=== PATIENT | female | born 1975 | race African-American/Black ===

== ENCOUNTER 2021-06-28 20:20 | Observation (INO) | payer MEDICARE, SELFPAY ==
--- NOTE | ~2021-06-28 | CT_ITS ---
EXAMINATION: CT brain wo con DATE: 06/28/2021 21:31 INDICATION: Headache. TECHNIQUE: Computed tomography (CT) of the head was performed without intravenous contrast. The mA wa s adjusted according to patient size. Iterative reconstruction technique was employed. The dose-lengt h product was 605.33 mGy-cm. COMPARISON: Head CT 05/28/2016, brain MRI 07/16/2007 FINDINGS: There is no intracranial hemorrhage, acute infarction, or abnormal intracranial mass lesion . The ventricles are normal in size. The paranasal sinuses are clear. The mastoid air cells are monroe l. IMPRESSION: 1. Normal brain. Reviewed, dictated and finalized at location A. IMPRESSION: 1. Normal brain.
--- NOTE | ~2021-06-28 | US_ITS ---
EXAMINATION: US pelvic complete DATE: 06/29/2021 15:30 INDICATION: Abnormal uterine bleeding. TECHNIQUE: Multiple transabdominal sonographic images of the pelvis were obtained. COMPARISON: CT abdomen and pelvis 08/20/2018 FINDINGS: The uterus measures 13.5 x 7.1 x 6.6 cm. There is no free fluid in the pelvis. The endometrial comple x measures 9 mm in thickness. There is a submucosal fibroid measuring 6.7 cm. The right ovary measure s 2.2 x 1.7 x 1.1 cm. The left ovary measures 3.1 x 2.7 x 4.1 cm. There is normal vascular flow in th e ovaries. IMPRESSION: 1. Uterine fibroid. Reviewed, dictated and finalized at location A. IMPRESSION: 1. Uterine fibroid.
[2021-06-28 20:32] VITALS: BP 168/103; PULSE 79; RESP 21; TEMP 36.4; O2SAT 100
--- NOTE | 2021-06-28 21:21 | ED.HA ---
HPI - Headache General Chief Complaint: Headache Stated Complaint: headache Time Seen by Provider: 06/28/21 20:58 History of Present Illness HPI Narrative: Patient presents with headache. Reports intermittent headache for the past several months reports over the past couple days has been getting progressively worse patient. Reports her headache is moving from one side of her head to the other is a throbbing sensation constant worse with bright lights or loud noises. Sure she can't tolerate anymore so she came in for evaluation. She reports intermittent blurry vision associated with a headache she denies any other areas of focal numbness or weakness. She does report diffuse fatigue and weakness. she denies any recent spinal instrumentation she denies any history of IV drug use she denies any fevers she denies neck pain. Related Data Home Medications Medication Instructions Recorded Confirmed bupropion HCl mg PO 06/28/21 06/28/21 diltiazem HCl PO 06/28/21 ergocalciferol (vitamin D2) 06/28/21 [Vitamin D2] lisinopril-hydrochlorothiazide tablet 06/28/21 lorazepam 06/28/21 pantoprazole [Protonix] PO 06/28/21 quetiapine mg PO 06/28/21 sertraline mg 06/28/21 Allergies Allergy/AdvReac Type Severity Reaction Status Date / Time Penicillins Allergy Severe Rash Verified 06/28/21 20:39 Review of Systems Review of Systems: CONSTITUTIONAL: Denies fever, chills, or sweats. EYES: Denies visual changes, redness, or discharge. ENT: Denies rhinorrhea, congestion, sore throat, or otalgia. CARDIOVASCULAR: Denies chest pain, palpitations, or edema. RESPIRATORY: Denies cough or dyspnea. GASTROINTESTINAL: Denies abdominal pain, nausea, vomiting, or diarrhea. GENITOURINARY: Denies dysuria or hematuria. SKIN: Denies rash or itching. MUSCULOSKELETAL: Denies back pain, joint pain, or myalgia. NEUROLOGIC: Denies numbness, dizziness, or weakness. PSYCHIATRIC: Denies anxiety or depression. All systems reviewed & are unremarkable except as noted in HPI and below Exam Narrative: GENERAL: Well-appearing, well-nourished, and in no acute distress. HEAD: Normocephalic, atraumatic. EYES: PERRLA and EOMI. ENT: Nares clear, no rhinorrhea or epistaxis. Mucous membranes moist. NECK: Supple. No masses. No JVD EXTREMITIES: Normal range of motion. No edema. SKIN: Warm, dry, no rash. NEURO: Cranial nerves II through XII are intact patient has 5 out of 5 strength in all extremities sensation intact to light touch in all extremities alert and oriented x3. PSYCH: Normal mood and affect. Course Reevaluation(s) Reevaluation #1: Labs reviewed with patient, She reports a hx of heaving bleeding and has had heavy menses, over the past year and is actively bleeding. SHe reports a hx of the same required blood transfusion. Requesting admisison for transfution. Date: 06/28/21 Time: 22:34 Vital Signs Vital signs: Vital Signs Temperature 36.4 C 06/28/21 20:32 Pulse Rate 79 06/28/21 20:32 Respiratory Rate 21 H 06/28/21 20:32 Blood Pressure 168/103 H 06/28/21 20:32 Pulse Oximetry 100 06/28/21 20:32 Temperature 36.1 C L 06/29/21 01:02 Pulse Rate 66 06/29/21 01:02 Respiratory Rate 20 06/29/21 01:02 Blood Pressure 149/83 H 06/29/21 01:02 Pulse Oximetry 100 06/29/21 01:02 MDM - Headache MDM Narrative Medical decision making narrative: Patient presented with headache and generalized fatigue. Patient's exam was reassuring without focal neurological deficits. Labs and imaging obtained. Labs notable for anemia. Patient reported a history of the same due to uterine fibroids and heavy menses. It was recommended patient have a hysterectomy previously but patient has not pursued additional therapies. Patient is admitted for transfusion and GI evaluation. Patient comfortable with the inpatient plan. Lab Data Result diagrams: 06/28/21 21:45 06/28/21 21:45 Labs: Lab Results 06/28/21 06/28/21 Range
[2021-06-28 21:47] VITALS: BP 148/86; PULSE 88; RESP 20
[2021-06-28 21:57] LABS: Basophils Absolute Auto 0.1 K/mm3 (0.0-0.1); Basophils Percent Auto 0.9 % (0.2-1.2); Eosinophils Absolute Auto 0.2 K/mm3 (0-0.3); Hematocrit 23.7 % (37.0-47.0); Immature Granulocyte Absolute 0.03 K/mm3 (0.00-0.031); Immature Granulocyte Percent A 0.4 % (0-0.5); Lymphocytes Absolute Auto 1.93 K/mm3 (0.9-3.2); Lymphocytes Percent Auto 24.3 % (18.3-44.2); Mean Corpuscular HGB Conc 27.8 g/dl (32-36); Mean Corpuscular Hemoglobin 16.8 pg (26-34); Mean Corpuscular Volume 60.5 fl (80-100); Mean Platelet Volume 8.2 fl (7.4-10.4); Monocytes Absolute Auto 0.5 K/mm3 (0.1-0.6); Monocytes Percent Auto 6.3 % (2.6-8.5); Neutrophils Absolute Auto 5.3 K/mm3 (1.3-6.7); Neutrophils Percent Auto 66.1 % (45.5-73.1); Platelet Count Result 613 k/mm3 (150-375); Red Blood Count 3.92 M/mm3 (4.2-5.4); Red Cell Distribution Width 23.5 % (11.5-14.5); White Blood Count 7.9 K/mm3 (4.5-10.0)
[2021-06-28 22:07] LABS: Anion Gap 5 mmol/L (8-16); Blood Urea Nitrogen 9 mg/dL (7-17); Calcium 9.4 mg/dL (8.4-10.2); Carbon Dioxide 24 mmol/L (22-30); Chloride 107 mmol/L (98-107); Estimated CRCL calculation 87 ml/min; Estimated Glomerular Filt Rate > 60; Glucose 107 mg/dL (65-110); Potassium 3.6 mmol/L (3.4-5.0); Sodium 136 mmol/L (137-145)
[2021-06-28 22:15] LABS: Hemoglobin 6.6 g/dL (12.0-15.0)
[2021-06-28 22:16] LABS: Platelet Estimate Increased (Adequate)
[2021-06-28 22:17] LABS: Hypochromasia 1+ (NORMAL)
[2021-06-28 22:18] LABS: Anisocytosis 3+ (NORMAL)
[2021-06-29] VITALS (23 sets, daily range): BP systolic 137–170; BP diastolic 67–102; PULSE 57–72; RESP 14–20; TEMP 36.1–36.9; O2SAT 98–100; BMI 28.3
--- NOTE | 2021-06-29 01:07 | ADMGEN ---
This patient, Claudia Rahman, was admitted to Medical Room 258-. Patient/family oriented to hospital policies and general routines including ID bracelet, bed and alarms, visiting hours, pain management, procedures, bathroom and other care routines, personal items, smoking policy, room service/diet, and visiting hours. Information on how to activate the Rapid Response Team has been discussed. Patient/Family are encouraged to report perceived risks to care and to ask questions if they do not understand what they are told or what they should do.
[2021-06-29] MEDS: SODIUM CHLORIDE 0.9% IV 250 ML 30 ML IV CONT (03:35)
--- NOTE | 2021-06-29 08:34 | WPDCN ---
Assessment and Plan Assessment and plan (1) Abnormal uterine bleeding (AUB): Code(s): N93.9 - Abnormal uterine and vaginal bleeding, unspecified Status: Acute Assessment and Plan: - US Pelvis/transvaginal Ordered - Patient reports vaginal bleeding slowed down/stopped - OK to DC home after transfusion. Can follow up on outpatient basis after discharge for further management of uterine fibroids and abnormal uterine bleeding (2) Hypertension: Code(s): I10 - Essential (primary) hypertension Status: Acute (3) Anemia: Qualifiers: Anemia type: unspecified type Qualified Code(s): D64.9 - Anemia, unspecified Code(s): D64.9 - Anemia, unspecified Status: Acute (4) Uterine fibroid: Code(s): D25.9 - Leiomyoma of uterus, unspecified Status: Inactive HPI Data of Consult Date/Time: 06/29/21 08:34 Requesting Physician: Paolo Ambriz MD Primary Care Provider: Michael FernándezMD Consult Narrative Reason for consult: Abnormal uterine bleeding, anemia Narrative: Claudia Rahman is a 46 year old female presented to the hospital with heavy menstrual bleeding. She was found to be anemic. She states that she has a known history of fibroids that were diagnosed few years ago. She had been having heavy and prolonged bleeding at that time. She had some follow up with a granite countertop installer about 2 years ago and was told a hysterectomy may be necessary. Due to the pandemic in 2019, she did not follow up. 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 She states that she went from bleeding 3 weeks at a time to 2 weeks at a time and now her periods last for about 1 week. SHe does state that she passes large clots. For this particular period, she had 3 days of heavy bleeding. But this morning, she is not having any more bleeding. Review of Systems Constitutional: Constitutional: Reports no additional constitutional complaints Eyes: Comments: swelling of eye lids ENT: Reports system reviewed and no additional complaints, except as documented Cardiovascular: Cardiovascular: Reports no additional cardiovascular complaints Respiratory: Respiratory: Reports no additional respiratory complaints Gastrointestinal: Gastrointestinal: Reports no additional gastrointestinal complaints Genitourinary: Genitourinary: Reports as per HPI Musculoskeletal: Musculoskeletal: Reports no additional musculoskeletal complaints Integumentary/Breasts: Skin/Breast: Reports system reviewed and no additional complaints, except as docu Neurologic: Reports system reviewed and no additional complaints, except as documented Psychiatric: Psychiatric: Reports no additional psychiatric complaints Endocrine: Endocrine: Reports no additional endocrine complaints Hematologic/Lymphatic: Hematologic/Lymphatic: Reports no additional hematologic/lymphatic complaints Allergic/Immunologic: Allergic/Immunologic: Reports no additional allergic/immunologic complaints PMFSH Past Medical History Medical History (Updated 06/29/21 @ 09:13 by Julia Gomez DO) Hypertension Uterine fibroid Surgical History Surgical History (Updated 06/29/21 @ 08:45 by Julia Gomez DO) History of delivery x3 Family History Family History Mother Diabetes mellitus Hypothyroid Hypertension Father Hypertension Sibling Lupus Social History Social History Smoking packs per day: 0.25 Smoking cigarettes per day: 5.0 Years smoked: 26 Smoking pack-years: 6.50 Smoking status: Current every day smoker Alcohol intake: current Drinks per week: 1 Substance use: current Substance use type: marijuana Last use: 05/27/2021 Spiritual care concerns: No Meds Home Medications and Allergies Home Medications Medication Instructions Recorded Confirmed Type bupropion HCl 3
[2021-06-29] MEDS: POLYSACCHARIDE IRON COMPLEX 150 MG CAPSULE PO ×2 (08:59→16:30)
[2021-06-29] MEDS: buPROPion HCL XL (24 HR) 150 MG TABCR 300 MG PO (08:59)
[2021-06-29] MEDS: hydroCHLOROthiazide 12.5 MG CAPSULE PO (09:01)
[2021-06-29] MEDS: PANTOPRAZOLE SOD SESQUIHYDRATE 20 MG TAB PO (09:01)
[2021-06-29] MEDS: lisinopriL 20 MG TABLET PO (09:01)
[2021-06-29] MEDS: SERTRALINE HCL 50 MG TABLET 100 MG PO (09:02)
[2021-06-29] MEDS: QUEtiapine FUMARATE XR 50 MG TAB.ER.24H 150 MG PO (09:03)
[2021-06-29] MEDS: SODIUM CHLORIDE 0.9% IV 250 ML 30 ML (10:50)
[2021-06-29 11:07] LABS: Hematocrit 26.3 % (37.0-47.0); Hemoglobin 7.5 g/dL (12.0-15.0)
--- NOTE | 2021-06-29 13:34 | PM.IMHP ---
H&P: HPI History of Present Illness Date/Time: 06/29/21 13:34 Claudia Rahman is a 46 year old lady who presented to the hospital with heavy menstrual bleeding. She was found to be severely anemic. She states that she has a known history of fibroids that were diagnosed few years ago; 2 years ago she had a similar presentation requiring blood transfusion. She had been having heavy and prolonged bleeding at that time. 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 Due to the pandemic in 2019, she did not follow up. 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 She states that she went from bleeding 3 weeks at a time to 2 weeks at a time and now her periods last for about 1 week. She does state that she passes large clots. For this particular period, she had 3 days of heavy bleeding. But this morning, she is not having any more bleeding. In the ED, her CBC showed a wbc of 7.9, an hemoglobin of 6.6, an hematocrit of 23.7, a platelet count of 613. 2 units of PRBCs were ordered and she was admitted for blood transfusion an monitoring. Chief Complaint: Heavy menstrual bleeding. Review of Systems Review of Systems: All systems reviewed & are unremarkable except as noted in HPI and below PMFSH Past Medical History Medical History (Updated 06/29/21 @ 13:52 by Felicita Parra MD) Hypertension Uterine fibroid Surgical History Surgical History (Updated 06/29/21 @ 08:45 by Julia Gomez DO) History of delivery x3 Family History Family History Mother Diabetes mellitus Hypothyroid Hypertension Father Hypertension Sibling Lupus Social History Social History Smoking packs per day: 0.25 Smoking cigarettes per day: 5.0 Years smoked: 26 Smoking pack-years: 6.50 Smoking status: Current every day smoker Alcohol intake: current Drinks per week: 1 Substance use: current Substance use type: marijuana Last use: 05/27/2021 Spiritual care concerns: No Meds Home Medications and Allergies Home Medications Medication Instructions Recorded Confirmed Type bupropion HCl 300 mg PO DAILY 06/28/21 06/29/21 History diltiazem HCl 180 mg PO DAILY 06/28/21 06/29/21 History ergocalciferol (vitamin D2) 1,250 mcg PO WEEKLY 06/28/21 06/29/21 History [Vitamin D2] lisinopril-hydrochlorothiazide See Rx Instructions .ROUTE .COMPLEX 06/28/21 06/29/21 History lorazepam 0.5 mg PO DAILY PRN 06/28/21 06/29/21 History pantoprazole [Protonix] 20 mg PO DAILY 06/28/21 06/29/21 History quetiapine 150 mg PO DAILY 06/28/21 06/29/21 History sertraline 100 mg PO DAILY 06/28/21 06/29/21 History Allergies Allergy/AdvReac Type Severity Reaction Status Date / Time Penicillins Allergy Severe Rash Verified 06/28/21 20:39 Vital Signs Vital Signs - 24 hr 06/28/21 20:32 06/28/21 21:47 06/29/21 00:17 Temperature 97.6 F Pulse Rate 79 88 72 Respiratory Rate 21 H 20 14 Blood Pressure 168/103 H 148/86 H 145/91 H Pulse Oximetry 100 98 06/29/21 01:02 06/29/21 03:35 06/29/21 03:50 Temperature 96.9 F L 97 F L 97.9 F Pulse Rate 66 62 66 Respiratory Rate 20 20 20 Blood Pressure 149/83 H 153/86 H 149/93 H Pulse Oximetry 100 100 100 06/29/21 04:00 06/29/21 04:06 06/29/21 04:23 Temperature 97.7 F Pulse Rate 70 62 Respiratory Rate 20 Blood Pressure 153/86 H 150/90 H Pulse Oximetry 100 06/29/21 04:50 06/29/21 05:50 06/29/21 06:50 Temperature 97.4 F L 97.7 F 97.1 F L Pulse Rate 59 L 61 59 L Respiratory Rate 20 20 20 Blood Pressure 149/89 H 144/84 H 137/91 H Pulse Oximetry 100 100 100 06/29/21 07:45 06/29/21 08:00 06/29/21 09:03 Temperature 97.3 F L Pulse Rate 61 61 62 Respiratory Rate 18 16 Blood Pressure 168/102 H Pulse Oximetry 100 100 06/29/21 09:15 06/29/21 10:
[2021-06-29] MEDS: CHLORHEXIDINE GLUCONATE 0.12% ORAL RINSE 473 ML BTL (*BKC) 15 ML SWISH/SPIT (16:30)
[2021-06-29 17:02] LABS: Hematocrit 30.7 % (37.0-47.0); Hemoglobin 9.2 g/dL (12.0-15.0)
--- NOTE | 2021-06-29 19:33 | PM.DS ---
DS: Admitting Diagnosis Admitting Diagnosis Severe anemia DS: Discharge Diagnosis Discharge Diagnosis (1) Dysfunctional uterine bleeding: Code(s): N93.8 - Other specified abnormal uterine and vaginal bleeding Status: Acute (2) Anemia: Qualifiers: Anemia type: unspecified type Qualified Code(s): D64.9 - Anemia, unspecified Code(s): D64.9 - Anemia, unspecified Status: Acute Assessment and Plan: Patient presents with severe asymptomatic anemia secondary to dysfnctional uterine bleeding. We will schedule 2 units PRBC transfusion and started oral iron supplementation. Patient to follow with [facility] for hormonal treatment versus surgical management. (3) Hypertension: Code(s): I10 - Essential (primary) hypertension Status: Acute Assessment and Plan: Resume hydroclorotiazide lisinopril. Diltiazem listed but not administered as refused by patient who was not taking it actively. (4) Abnormal uterine bleeding (AUB): Code(s): N93.9 - Abnormal uterine and vaginal bleeding, unspecified Status: Acute Assessment and Plan: Patient has a known history of uterine fibroids and reports recently 3 days of heavy bleeding. Management per [facility]. (5) Broken or cracked tooth, nontraumatic: Code(s): K03.81 - Cracked tooth Status: Acute Assessment and Plan: Referral to dentist as an outpatient. Augmentin 875 mg PO twice daily Ibuprofen as needed for pain. Chlorhexidine mouthwash TID after meals. (6) Back pain: Code(s): M54.9 - Dorsalgia, unspecified Status: Acute Assessment and Plan: Lidocaine patch. DS: Summary Hospital Course Reason for hospitalization: Severe anemia Hospital Course: Claudia Rahman is a 46 year old lady who presented to the hospital with heavy menstrual bleeding. She was found to be severely anemic. She states that she has a known history of fibroids that were diagnosed few years ago; 2 years ago she had a similar presentation requiring blood transfusion. She had been having heavy and prolonged bleeding at that time. 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 Due to the pandemic in 2019, she did not follow up. 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 She states that she went from bleeding 3 weeks at a time to 2 weeks at a time and now her periods last for about 1 week. She does state that she passes large clots. For this particular period, she had 3 days of heavy bleeding. But this morning, she is not having any more bleeding. In the ED, her CBC showed a wbc of 7.9, an hemoglobin of 6.6, an hematocrit of 23.7, a platelet count of 613. 2 units of PRBCs were ordered and she was admitted for blood transfusion an monitoring. After 2 units PRBCs, the H/H was rechecked. repeat Hb ramsey to 9.2 with an hematocrit of 30.7. Status at Discharge Functional status at discharge: independent ambulation Overall status at discharge: patient is back to baseline Time Spent with Patient Time attestation: Total time spent providing and/or coordinating discharge services: 45 min Time spent: Greater than 30 minutes Exam Const: General: no acute distress HENMT: Mouth: Yes moist mucous membranes Eyes: Sclera: sclerae normal Pupils: Equal, round and reactive pupils present Neck: Lymphatic: lymphadenopathy not noted Resp: Effort & Inspection: normal respiratory effort Auscultation: clear to auscultation bilaterally, no crackles, no rales, no rhonchi and no wheezes Cardio: Rate: regular rate Rhythm: regular rhythm Heart sounds: no gallops, no murmurs and no rubs GI: Inspection: non-distended Auscultation: normal bowel sounds Skin: General skin exam: no rashes or lesions noted and no erythema Rashes: no rashes noted Wounds: wound noted Neuro: General: deep tendon reflexes 2+ bilaterally Cranial nerv
[2021-06-29 19:42] LABS: Creatinine Urine 96.6 mg/dL; Total Protein Urine Random 16 mg/dL; Ur Ttl Prot Creatinine Ratio 0.17 mg/mg (0-0.20)
[2021-06-29] MEDS: LIDOCAINE 5% PATCH 1 PATCH TRANSDERM (20:26)
[2021-06-29] MEDS: AMOXICILLIN/CLAVULANATE K 875-125 MG TAB 1 TABLET PO (20:27)
[2021-06-30] VITALS: BP 144/87; PULSE 62; RESP 20; TEMP 36.1; O2SAT 100
[2021-06-30 05:12] VITALS: BP 138/84; PULSE 68; RESP 20; TEMP 36.4; O2SAT 100
[2021-06-30 08:00] VITALS: BP 143/99; PULSE 71; RESP 20; TEMP 36.6; O2SAT 100
[2021-06-30] MEDS: POLYSACCHARIDE IRON COMPLEX 150 MG CAPSULE PO (08:24)
[2021-06-30] MEDS: QUEtiapine FUMARATE XR 50 MG TAB.ER.24H 150 MG PO (08:25)
[2021-06-30] MEDS: CHLORHEXIDINE GLUCONATE 0.12% ORAL RINSE 473 ML BTL (*BKC) 15 ML SWISH/SPIT (08:26)
[2021-06-30] MEDS: PANTOPRAZOLE SOD SESQUIHYDRATE 20 MG TAB PO (08:26)
[2021-06-30] MEDS: hydroCHLOROthiazide 12.5 MG CAPSULE PO (08:26)
[2021-06-30 08:27] VITALS: RESP 20; O2SAT 100
[2021-06-30] MEDS: lisinopriL 20 MG TABLET PO (08:27)
[2021-06-30] MEDS: AMOXICILLIN/CLAVULANATE K 875-125 MG TAB 1 TABLET PO (08:27)
[2021-06-30] MEDS: SERTRALINE HCL 50 MG TABLET 100 MG PO (08:27)
[2021-06-30] MEDS: buPROPion HCL XL (24 HR) 150 MG TABCR 300 MG PO (08:27)
== END 2021-06-30 10:25 | disposition home or self-care (01) ==
LOC: ANHED 22:51 → ANH2MED 06-29 11:10
PROVIDERS: Admitting Provider Internal Medicine; Emergency Provider Emergency Medicine; PCP Internal Medicine Gastroenterology; Visit Provider Internal Medicine
DX: N93.8 Other specified abnormal uterine and vaginal bleeding (principal); D64.9 Anemia, unspecified; I10 Essential (primary) hypertension; D25.9 Leiomyoma of uterus, unspecified; F17.210 Nicotine dependence, cigarettes, uncomplicated
CPT/HCPCS: 36415; 36430; 70450; 76856; 80048; 81050; 82570; 84156; 85014; 85018; 85025; 86850; 86900; 86901; 86920; 96360; 96361; 99285; A4248; A9270; G0378; J7050; P9016

== ENCOUNTER 2021-07-23 17:42 | Emergency (ER) | payer MEDICARE, SELFPAY ==
--- NOTE | ~2021-07-23 | XR_ITS ---
EXAMINATION: XR chest 2V DATE: 07/23/2021 18:33 INDICATION: Weakness, chills, chest pain TECHNIQUE: PA and lateral views of the chest are obtained. COMPARISON: 08/20/2018 FINDINGS: The lungs are free of acute opacities. There is no pleural effusion or pneumothorax. The ca rdiomediastinal silhouette is normal. The visualized bones and soft tissues are unremarkable. IMPRESSION: 1. No acute cardiopulmonary abnormality. Reviewed, dictated and finalized at location A.
--- NOTE | 2021-07-23 17:50 | ECG_ITS ---
Measurements Intervals [place] Rate: 83 P: 29 NM: 176 QRS: 5 QRSD: 100 T: 14 QT: 373 QTc: 439 Interpretive Statements SINUS RHYTHM VOLTAGE CRITERIA FOR LVH BORDERLINE T WAVE ABNORMALITY- ANTEROLAT/INF LEADS BASELINE WANDER- V1-V2 BORDERLINE ECG Electronically Signed On 07-23-2021 20:12:06 CDT by Ulises Javed D.O.
[2021-07-23 17:52] VITALS: BP 136/90; PULSE 97; RESP 14; TEMP 36.1; O2SAT 99
[2021-07-23 18:15] LABS: Basophils Absolute Auto 0.1 K/mm3 (0.0-0.1); Basophils Percent Auto 0.7 % (0.2-1.2); Eosinophils Absolute Auto 0.2 K/mm3 (0-0.3); Eosinophils Percent Auto 1.9 % (0-4.4); Hematocrit 35.4 % (37.0-47.0); Immature Granulocyte Absolute 0.02 K/mm3 (0.00-0.031); Immature Granulocyte Percent A 0.2 % (0-0.5); Lymphocytes Absolute Auto 2.03 K/mm3 (0.9-3.2); Mean Corpuscular HGB Conc 31.1 g/dl (32-36); Mean Corpuscular Hemoglobin 21.6 pg (26-34); Mean Corpuscular Volume 69.4 fl (80-100); Mean Platelet Volume 8.8 fl (7.4-10.4); Monocytes Absolute Auto 0.7 K/mm3 (0.1-0.6); Monocytes Percent Auto 7.4 % (2.6-8.5); Neutrophils Absolute Auto 6.7 K/mm3 (1.3-6.7); Neutrophils Percent Auto 68.8 % (45.5-73.1); Platelet Count Result 544 k/mm3 (150-375); Red Cell Distribution Width 32.6 % (11.5-14.5); White Blood Count 9.7 K/mm3 (4.5-10.0)
[2021-07-23 18:34] LABS: Alanine Aminotransferase 14 U/L (4-35); Albumin Level 4.6 g/dL (3.5-5.1); Alkaline Phosphatase 90 U/L (38-126); Anion Gap 13 mmol/L (8-16); Aspartate Amino Transferase 35 U/L (14-36); Bilirubin,Total 0.4 mg/dL (0.2-1.3); Blood Urea Nitrogen 10 mg/dL (7-17); Calcium 10.3 mg/dL (8.4-10.2); Carbon Dioxide 21 mmol/L (22-30); Chloride 103 mmol/L (98-107); Estimated CRCL calculation 78 ml/min; Estimated Glomerular Filt Rate > 60; Glucose 118 mg/dL (65-110); Potassium 3.3 mmol/L (3.4-5.0); Sodium 137 mmol/L (137-145)
[2021-07-23 21:40] VITALS: BP 111/91; PULSE 64; RESP 18; O2SAT 100
[2021-07-23 22:18] LABS: Troponin I < 0.012 ng/mL (0.000-0.034)
--- NOTE | 2021-07-23 22:37 | ED.WEAKNESS ---
HPI - Weakness General Chief complaint: Weakness Stated complaint: Weakness, Dizzy Time Seen by Provider: 07/23/21 21:24 Source: patient, RN notes reviewed and old records reviewed Mode of arrival: ambulatory Limitations: no limitations History of Present Illness HPI Narrative: This is a 46 year old female with history of DUB and anemia who presents for evaluation of multiple complaints. She reports today she developed sensation of shakiness, lip numbness. She states she felt like her soul was leaving her body . She states she just didn't feel right and she did not know what to do. She was admitted to hospital 3 weeks for anemia . She received transfusion of 2 units PRBCs at that time. She reports she started her menstrual cycle yesterday and she is having abdominal cramping today prior to her symptoms starting. She is taking midol for her cramps. She also reports taking bactrim for 3 days due to abscess to left axilla. She is scare since this is her first cycle since receiving her transfusion. She denies chest pain, cough or shortness of breath. Related Data Home Medications Medication Instructions Recorded Confirmed bupropion HCl 300 mg PO DAILY 06/28/21 06/29/21 diltiazem HCl 180 mg PO DAILY 06/28/21 06/29/21 ergocalciferol (vitamin D2) 1,250 mcg PO WEEKLY 06/28/21 06/29/21 [Vitamin D2] lisinopril-hydrochlorothiazide See Rx Instructions .ROUTE .COMPLEX 06/28/21 06/29/21 pantoprazole [Protonix] 20 mg PO DAILY 06/28/21 06/29/21 quetiapine 150 mg PO DAILY 06/28/21 06/29/21 sertraline 100 mg PO DAILY 06/28/21 06/29/21 Allergies Allergy/AdvReac Type Severity Reaction Status Date / Time Penicillins Allergy Severe Rash Verified 06/28/21 20:39 Review of Systems Review of Systems: All systems reviewed & are unremarkable except as noted in HPI and below PMFSH Past Medical History Medical History Hypertension Uterine fibroid Surgical History Surgical History History of delivery x3 Family History Family History Mother Diabetes mellitus Hypothyroid Hypertension Father Hypertension Sibling Lupus Social History Social History Smoking packs per day: 0.25 Smoking cigarettes per day: 5.0 Years smoked: 26 Smoking pack-years: 6.50 Smoking status: Current every day smoker Alcohol intake: current Drinks per week: 1 Substance use: current Substance use type: marijuana Last use: 05/27/2021 Spiritual care concerns: No Exam Const: General: no acute distress and alert Orientation/consciousness: patient oriented x3 HENMT: Head: normal to inspection Face and sinus: normal facial exam Mouth: Yes lip normal and Yes moist mucous membranes Throat: uvula midline Other: no tongue or lip swelling Eyes: Pupils: Equal, round and reactive pupils present EOM: EOMs intact bilaterally Chest: Chest palpation & inspection: normal inspection of the chest Resp: Effort & Inspection: normal respiratory effort and no retractions Auscultation: clear to auscultation bilaterally Cardio: Rate: regular rate Rhythm: regular rhythm Heart sounds: no murmurs GI: GI Palp: Yes Soft to palpation, No Tenderness to palpation present (GI) and No Guarding due to palpation present (GI) Auscultation: normal bowel sounds Neuro: General: patient oriented x3, moves all extremities and CN's II-XI intact bilaterally Extrem: General: normal to inspection Psych: Mental Status: mental status grossly normal Affect: normal affect Course Reevaluation(s) Reevaluation #1: I believe patient is experiencing panic attack. Her hemoglobin has increased since her discharge. She is not complaining of heavy periods. She has not lip or tongue edema to suggest issue with lisinopril at this reshma
[2021-07-23] MEDS: POTASSIUM CHLORIDE 20 MEQ TABLET 40 MEQ PO (23:37)
[2021-07-23 23:38] VITALS: BP 127/93; PULSE 72; RESP 16; O2SAT 100
== END 2021-07-23 23:47 | disposition home or self-care (01) ==
PROVIDERS: Emergency Medicine; Emergency Provider General Practice; PCP Internal Medicine Gastroenterology
DX: E87.6 Hypokalemia (principal); F41.9 Anxiety disorder, unspecified; D64.9 Anemia, unspecified; I10 Essential (primary) hypertension; F17.210 Nicotine dependence, cigarettes, uncomplicated; R94.31 Abnormal electrocardiogram [ECG] [EKG]
CPT/HCPCS: 36415; 71046; 80053; 84484; 85025; 86850; 86900; 86901; 93005; 99284; A9270

== ENCOUNTER 2023-06-28 09:43 | Emergency (ER) | payer MEDICARE, SELFPAY ==
[2023-06-28] VITALS (9 sets, daily range): BP systolic 162–189; BP diastolic 98–121; PULSE 54–78; RESP 13–18; TEMP 36.8–37; O2SAT 91–100
--- NOTE | ~2023-06-28 | XR_ITS ---
EXAMINATION: XR chest 2V DATE: 06/28/2023 10:19 INDICATION: Weakness and shortness of breath TECHNIQUE: PA and lateral views of the chest are obtained. COMPARISON: 07/23/2021 FINDINGS: The lungs are free of acute opacities. No pleural effusion or pneumothorax. The cardiomedia stinal silhouette is normal. The visualized bones and soft tissues are unremarkable. IMPRESSION: 1. No acute cardiopulmonary abnormality. Reviewed, dictated and finalized at location A.
--- NOTE | 2023-06-28 09:49 | ECG_ITS ---
Measurements Intervals [place] Rate: 73 P: 15 DC: 163 QRS: 0 QRSD: 95 T: 21 QT: 408 QTc: 452 Interpretive Statements SINUS RHYTHM BORDERLINE T WAVE ABNORMALITY- INFERIOR LEADS BORDERLINE ECG COMPARED TO ECG 07/23/2021 18:11:40 NO SIGNIFICANT CHANGES Electronically Signed On 06-28-2023 10:17:46 CDT by Ulises Javed D.O.
[2023-06-28 10:16] LABS: Basophils Absolute Auto 0.1 K/mm3 (0.0-0.1); Eosinophils Absolute Auto 0.1 K/mm3 (0-0.3); Eosinophils Percent Auto 1.8 % (0-4.4); Hematocrit 33.3 % (37.0-47.0); Hemoglobin 10.4 g/dL (12.0-15.0); Immature Granulocyte Absolute 0.05 K/mm3 (0.00-0.031); Immature Granulocyte Percent A 0.6 % (0-0.5); Lymphocytes Absolute Auto 2.16 K/mm3 (0.9-3.2); Lymphocytes Percent Auto 27.3 % (18.3-44.2); Mean Corpuscular HGB Conc 31.2 g/dl (32-36); Mean Corpuscular Hemoglobin 24.4 pg (26-34); Mean Corpuscular Volume 78.2 fl (80-100); Mean Platelet Volume 8.8 fl (7.4-10.4); Monocytes Absolute Auto 0.5 K/mm3 (0.1-0.6); Monocytes Percent Auto 6.5 % (2.6-8.5); Neutrophils Percent Auto 62.8 % (45.5-73.1); Platelet Count Result 548 k/mm3 (150-375); Red Blood Count 4.26 M/mm3 (4.2-5.4); Red Cell Distribution Width 17.2 % (11.5-14.5); White Blood Count 7.9 K/mm3 (4.5-10.0)
[2023-06-28 10:26] LABS: Alanine Aminotransferase 12 U/L (6-35); Albumin Level 4.1 g/dL (3.5-5.1); Alkaline Phosphatase 101 U/L (38-126); Anion Gap 7 mmol/L (8-16); Aspartate Amino Transferase 18 U/L (14-36); Bilirubin,Total 0.2 mg/dL (0.2-1.3); Blood Urea Nitrogen 13 mg/dL (7-17); Calcium 10.1 mg/dL (8.4-10.2); Carbon Dioxide 27 mmol/L (22-30); Chloride 103 mmol/L (98-107); Estimated CRCL calculation 85 ml/min; Estimated Glomerular Filt Rate > 60; Glucose 101 mg/dL (65-110); Potassium 3.8 mmol/L (3.4-5.0); Sodium 137 mmol/L (137-145)
--- NOTE | 2023-06-28 11:33 | ED.GENADULT ---
HPI - General Adult General Chief complaint: Unspecified Stated complaint: excessive vaginal bleeding/need blood transfusion Time Seen by Provider: 06/28/23 11:12 Source: patient Mode of arrival: ambulatory Limitations: no limitations History of Present Illness HPI narrative: This is a 48-year-old female with PMH of AUB, HTN who presents to the ED with chief complaint of heavy vaginal bleeding for the past 2 days. She states I am having a heavy menstrual cycle. Patient states I think I need a blood transfusion. She reports history of uterine fibroids and has had to have transfusions in the past. She has additional complaints of bilateral lower extremity paresthesias, headache and generalized weakness. Also complains of lower back pain onset with this menstrual period. She reports last normal menstrual period was about 5 to 6 weeks ago. She also has additional complaints of chest pressure and tightness that just recently started here in the department. Also endorses recent urinary frequency but denies any other urinary or vaginal symptoms. Endorses a lot of anxiety over the possibility of having to have another transfusion. Denies any LOC, shortness of breath, vision changes, focal weakness or abdominal pain. Reports of surgical history of delivery and tubal ligation. Additionally her triage blood pressure is high at 185/106 today. She states she has been out of her blood pressure medications for the last couple of weeks. Related Data Home Medications Medication Instructions Recorded Confirmed bupropion HCl 300 mg 24 hr tablet, 300 mg PO DAILY 06/28/21 06/29/21 extended release diltiazem HCl 180 mg 180 mg PO DAILY 06/28/21 06/29/21 capsule,extended release 24 hr ergocalciferol (vitamin D2) 1,250 1,250 mcg PO WEEKLY 06/28/21 06/29/21 mcg (50,000 unit) capsule (Vitamin D2) lisinopril 20 See Rx Instructions .Route .COMPLEX 06/28/21 06/29/21 mg-hydrochlorothiazide 12.5 mg tablet pantoprazole 20 mg tablet,delayed 20 mg PO DAILY 06/28/21 06/29/21 release (Protonix) quetiapine 150 mg tablet,extended 150 mg PO DAILY 06/28/21 06/29/21 release 24 hr sertraline 100 mg tablet 100 mg PO DAILY 06/28/21 06/29/21 Allergies Allergy/AdvReac Type Severity Reaction Status Date / Time Penicillins Allergy Severe Rash Verified 06/28/23 11:19 Review of Systems Review of Systems: All systems as dictated in [facility] Past Medical History Medical History Hypertension Uterine fibroid Surgical History Surgical History History of delivery x3 Family History Family History Mother Diabetes mellitus Hypothyroid Hypertension Father Hypertension Sibling Lupus Social History Social History Smoking packs per day: 0.25 Smoking cigarettes per day: 5.0 Years smoked: 26 Smoking pack-years: 6.50 Smoking status: Current every day smoker Alcohol intake: current Drinks per week: 1 Substance use: current Substance use type: marijuana Last use: 05/27/2021 Spiritual care concerns: No Exam Narrative: GENERAL: Well-appearing, well-nourished, and in no acute distress. HEAD: Normocephalic, atraumatic. EYES: PERRLA and EOMI. ENT: Nares clear, no rhinorrhea or epistaxis. Mucous membranes moist. Oropharynx without tonsillar hypertrophy exudate or other lesions. NECK: Supple. No adenopathy or masses. CHEST: No respiratory distress. Clear to auscultation. No wheezes rales or rhonchi HEART: Regular rate and rhythm. No murmur heard. Normal peripheral pulses. ABDOMEN: Soft, nontender, nondistended, normal active bowel sounds. MSK: Normal range of motion. No edema. SKIN: Warm, dry, no rash. NEURO: Alert and oriented x3. No focal deficits. PSYCH: Normal mo
--- NOTE | 2023-06-28 11:35 | PC.NURSE ---
Lab called, Troponin added onto labs previously drawn
[2023-06-28 12:04] LABS: Troponin I < 0.012 ng/mL (0.000-0.034)
[2023-06-28 12:11] LABS: Appearance Urine Cloudy (Clear); Bacteria Urine None Seen /hpf; Bilirubin Urine 1+ (Negative); Blood Urine 3+ (Negative); Color Urine Dark Yellow (Yellow); Glucose Urine UA Negative (Negative); Ketones Urine Negative (Negative); Leukocyte Esterase Ur Negative LEU/UL (Negative); Nitrate Urine Negative (Negative); Non Pathogenic Casts 0-2; Protein Urine Trace mg/dL (Negative); RBC Urine >100 /hpf (0-2); Specific Grav Ur 1.033 (1.001-1.035); Squamous Epithelial Cell Urine None seen /hpf (Few); Urobilinogen Urine 0.2 mg/dL (<2.0); pH Urine 5.5 (5.0-9.0)
[2023-06-28 12:13] LABS: Add Urine Microscopic? YES
[2023-06-28] MEDS: hydroCHLOROthiazide 12.5 MG CAPSULE PO (12:44)
[2023-06-28] MEDS: lisinopriL 20 MG TABLET PO (12:44)
[2023-06-28 13:34] LABS: Troponin I < 0.012 ng/mL (0.000-0.034)
== END 2023-06-28 13:57 | disposition home or self-care (01) ==
PROVIDERS: Emergency Medicine; Emergency Provider Physician Assistant; PCP Internal Medicine Gastroenterology
DX: N93.9 Abnormal uterine and vaginal bleeding, unspecified (principal); I10 Essential (primary) hypertension; F17.210 Nicotine dependence, cigarettes, uncomplicated; R82.998 Other abnormal findings in urine; R94.31 Abnormal electrocardiogram [ECG] [EKG]
CPT/HCPCS: 36415; 71046; 80053; 81001; 81025; 84484; 85025; 87086; 87088; 87147; 93005; 99284; A9270

== ENCOUNTER 2023-08-06 13:28 | Outpatient (CLI) | payer MEDICARE, SELFPAY ==
--- NOTE | ~2023-08-06 | US_ITS ---
EXAMINATION: US soft tissue lower back DATE: 08/06/2023 14:35 INDICATION: Left lower back mass. TECHNIQUE: Multiple grayscale and Doppler ultrasound images of the lower back were obtained. COMPARISON: CT abdomen and pelvis 08/20/2018 FINDINGS: In the left lower back, there is a 5.5 x 2.0 x 6.4 cm subcutaneous mass with echotexture an d echogenicity equal to normal subcutaneous fat, consistent with a lipoma. IMPRESSION: 1. 6.4 cm subcutaneous lipoma in the left lower back. Reviewed, dictated and finalized at location A.
--- NOTE | ~2023-08-06 | CT_ITS ---
EXAMINATION: CT BRAIN W/O DATE: 08/06/2023 13:50 INDICATION: Headaches. TECHNIQUE: Computed tomography (CT) of the head was performed without intravenous contrast. The dose- length product was 605.33 mGy-cm. Automated exposure control and iterative reconstruction technique w ere employed. COMPARISON: CT dated 06/28/2021 FINDINGS: Normal brain parenchymal volume for age. Normal eagle-white differentiation. No acute intrac ranial hemorrhage, infarction, mass or mass effect. No ventriculomegaly or midline shift. Midline sagittal images demonstrate a normal corpus callosum, c raniovertebral junction and sella turcica. Basilar cisterns are patent. Paranasal sinuses and mastoids are pneumatized. No depressed skull fractures. IMPRESSION: 1. No acute intracranial abnormality. Reviewed, dictated and finalized at location B.
== END 2023-08-06 13:29 | disposition home or self-care (01) ==
PROVIDERS: PCP Internal Medicine Gastroenterology; Visit Provider Internal Medicine Gastroenterology
DX: M79.9 Soft tissue disorder, unspecified (principal); R51.9 Headache, unspecified
CPT/HCPCS: 70450; 76705

== ENCOUNTER 2024-03-26 13:28 | Emergency (ER) | payer MEDICARE, SELFPAY ==
[2024-03-26] VITALS (18 sets, daily range): BP systolic 154–182; BP diastolic 88–114; PULSE 60–80; RESP 13–23; TEMP 36.8; O2SAT 96–100
[2024-03-26] MEDS: FAMOTIDINE 20 MG/2 ML VIAL 40 MG IV PUSH (14:19)
--- NOTE | 2024-03-26 14:33 | ED.ALLEREA ---
HPI - Allergic Reaction General Chief complaint: Allergic Reaction Stated complaint: allergic Time Seen by Provider: 03/26/24 13:45 History of Present Illness HPI narrative: This is a 48-year-old female, with history of hypertension, taking lisinopril who presents to the emergency department complaining of tongue swelling. The patient states that approximately 06:00 o'clock this morning she woke to find the left side of her tongue was swollen. She states she took her lisinopril last night. This initially improved with icing, though when she woke later again this morning it was worse. Approximately 1 hour prior to arrival, she went to urgent care for evaluation and was given epinephrine and Benadryl. She states her swelling has since improved. She has no other complaints at this time. Related Data Home Medications Medication Instructions Recorded Confirmed bupropion HCl 300 mg 24 hr tablet, 300 mg PO DAILY 06/28/21 06/29/21 extended release diltiazem HCl 180 mg 180 mg PO DAILY 06/28/21 06/29/21 capsule,extended release 24 hr ergocalciferol (vitamin D2) 1,250 1,250 mcg PO WEEKLY 06/28/21 06/29/21 mcg (50,000 unit) capsule (Vitamin D2) pantoprazole 20 mg tablet,delayed 20 mg PO DAILY 06/28/21 06/29/21 release (Protonix) quetiapine 150 mg tablet,extended 150 mg PO DAILY 06/28/21 06/29/21 release 24 hr sertraline 100 mg tablet 100 mg PO DAILY 06/28/21 06/29/21 Allergies Allergy/AdvReac Type Severity Reaction Status Date / Time Penicillins Allergy Severe Rash Verified 03/26/24 13:38 Review of Systems Review of Systems: All systems reviewed & are unremarkable except as noted in HPI and below PMFSH Past Medical History Medical History Hypertension Uterine fibroid Surgical History Surgical History History of delivery x3 Family History Family History Mother Diabetes mellitus Hypothyroid Hypertension Father Hypertension Sibling Lupus Social History Social History Smoking packs per day: 0.25 Smoking cigarettes per day: 5.0 Years smoked: 26 Smoking pack-years: 6.50 Smoking status: Current every day smoker Alcohol intake: current Drinks per week: 1 Substance use: current Substance use type: marijuana Last use: 05/27/2021 Spiritual care concerns: No Exam Narrative: GENERAL: Well-developed, well-nourished, and in no acute distress. HEAD: Normocephalic, atraumatic. EYES: PERRLA and EOMI. ENT: Mild swelling of the left aspect of the tongue without posterior or pharyngeal swelling. The patient's voice sounds high, muffled. She is handling her secretions well. Nares clear, no rhinorrhea or epistaxis. Mucous membranes moist. Oropharynx without tonsillar hypertrophy exudate or other lesions. NECK: Supple. No stridor CHEST: Clear to auscultation. No respiratory distress. No wheezes rales or rhonchi HEART: Regular rate and rhythm. No murmur heard. Normal peripheral pulses. ABDOMEN: Soft, nontender, nondistended, normal active bowel sounds. EXTREMITIES: Normal range of motion. No edema. SKIN: Warm, dry, no rash. NEURO: Alert and oriented x3. No focal deficit. Moving all 4 limbs spontaneously PSYCH: Normal mood and affect. Course Course Emergency Course: 15:17 - On re-evaluation, the patient states she feels as though her swelling is improving. 16:07 - On re-evaluation, the patient states she feels as though her swelling has not worsened. Her voice is clearing. 18:57 - After observation, the patient's symptoms have not worsened. Will discharge with steroids, antihistamines, recommendation to stop Lisinopril and primary care follow up. I discussed the findings and recommendations with the patient. Discussed return and emergency precautio
== END 2024-03-26 20:05 | disposition home or self-care (01) ==
PROVIDERS: Emergency Provider Preventive Medicine Aerospace Medicine; PCP Internal Medicine Gastroenterology
DX: T78.3XXA Angioneurotic edema, initial encounter (principal); I10 Essential (primary) hypertension; F17.210 Nicotine dependence, cigarettes, uncomplicated; F12.90 Cannabis use, unspecified, uncomplicated
CPT/HCPCS: 96374; 99284

== ENCOUNTER 2025-02-05 07:12 | Emergency (ER) | payer MEDICARE, SELFPAY ==
--- NOTE | ~2025-02-05 | US_ITS ---
US venous doppler [facility] - 02/05/2025 08:46 CDT History: 49 years old Female with bilateral lower extremity pain and swelling. Real-time sonographic images of the bilateral lower extremity venous system were obtained. Color Dop pler sonography and spectral waveform analysis were performed. No prior studies for comparison. The bilateral sapheno-femoral junctions are patent. The bilateral common femoral, superficial femor al, popliteal and posterior tibial veins are compressible and without evidence of echogenic thrombus . Impression: No evidence of deep venous thrombosis Reviewed, dictated and finalized at location A. Impression: No evidence of deep venous thrombosis
--- NOTE | ~2025-02-05 | XR_ITS ---
EXAM/PROCEDURE: XR chest 2V - 02/05/2025 08:00 CDT HISTORY: 49 years old Female with Chest Pain TECHNIQUE: Two view(s) of the chest. COMPARISON: None available. FINDINGS: LUNGS/ PLEURA: No focal consolidation. No appreciable pneumothorax or large pleural effusion. HEART/ MEDIASTINUM: Heart appears normal in size. BONES: No acute osseous abnormality. OTHER: Visualized upper abdomen is unremarkable. IMPRESSION: No acute process. Reviewed, dictated and finalized at location A. IMPRESSION: No acute process.
--- OUTSIDE RECORDS SUMMARY | 2025-02-05 07:16 | XMS_ITS | Continuity of Care Document ---
Author Organization [facility] Address [id number] [place] [address] [address] [place] [address] Phone Care Team Providers Care Outpatient Clerk Name Role Phone Unavailable Unavailable Unavailable Allergies, Adverse Reactions, Alerts Substance Reaction Status Criticality Penicillins Active No Information Medications Medication Instructions Dosage Effective Dates (start - stop) Status Comments Vicodin 5 mg-500 mg Tab take 1 tablet by ORAL route every 4 - 6 hours as needed for pain - Active Procedures Procedure Date EYE EXAM ESTABLISHED PAT SPECIAL EYE EXAM, SUBSEQUENT SPECIAL EYE EXAM, SUBSEQUENT OFFICE/OUTPATIENT VISIT, NEW SPECIAL EYE EXAM, INITIAL SPECIAL EYE EXAM, INITIAL VISUAL FIELD EXAMINATION(S) Advance Directives Directive Yes / No Effective Date File Name No Information Encounters Encounter Description Practice Location Reason(s) For Visit Diagnoses Date Provider Providers Copied on Encounter [facility], [address] [place] [address], [id number], tel:[phone] OPH CONSULT SUSANA WHEATLEY No Information 0 No Information Referring Provider: Ever Coates, [address] , [place], [address]. tel:[phone] OFFICE/OUTPA TIENT VISIT, [facility], [address] [place] [address], [place], [place], [id number], tel:[phone] OPH CONSULT SUSANA WHEATLEY Conjunctival hemorrhagePai n in or around eyeOther vitreous opacities Sep-2 0-201 0 Yeison Toro. [address] , [address], [place], [place], [id number], [place]. tel:[phone] Referring Provider: Aj Agee, [address] [facility] [address], [place], [address]. tel:[phone] Family History Family Member Type Diagnosis Age At Onset No Information Payers Payer name Insurance type Covered democrat ID Abbi torres(s) Workmans Compensation WC [id number] Social History Type Description Quantity Date Captured Comments Sex Female Smoking Status No Information Chief Complaint And Reason For Visit No Information Reason For Referral Reason For Referral No Information History Of Present Illness Encounter Date Complaint History Of Prese nt Illness No Information Functional Status Date Functional Assessmen t No Information Instructions Date Instruction Additional Infor mation Subconjunctival Hemo rrhage, OS - vision affected - Discussed diagnosis in detail with patient. Will continue to observe condition and or symptoms. Advised pt up up to two months for swe Related to Subconjunctival Hemorrhage Vitreous Floaters, O S - Will continue to monitor condition. Related to Vitreous Floaters Pain in or around th e eye, OU - Discussed diagnosis in detail with patient. Will continue to observe condition and or symptoms. Related to Pain in or around the eye Assessments Type Assessment Date No Information Patient Care Teams Name Effective Dates (start - stop) Status Members No Information
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
--- OUTSIDE RECORDS SUMMARY | 2025-02-05 07:16 | XMS_ITS | Clinical Summary ---
Author Organization [facility] Address [address] [place] [address] Care Team Providers Care Urologic Surgeon Name Role Phone Michael Fernández MD Primary Care Provider Allergies Active Allergy Reactions Criticality Noted Date Comments Penicillins Rash Low 10/09/2018 Medications ferrous sulfate 325 mg (65 mg iron) tablet Take 325 mg by mouth daily. Active lisinopril-hydro CHLOROthiazide (ZESTORETIC) 20-12.5 mg tablet Take 1 Tablet by mouth daily. Active QUEtiapine (SEROquel) 300 mg tablet Take 300 mg by mouth 2 times daily. Active raNITIdine (ZANTAC) 150 mg tablet Take 150 mg by mouth 2 times daily. Active sertraline (ZOLOFT) 100 mg tablet Take 100 mg by mouth daily. Active Active Problems Problem Noted Date Diagnosed Date Breast fibroadenoma, right 11/05/2018 Abnormal mammogram of right breast 10/09/2018 Abnormal ultrasound of breast 10/09/2018 Vitamin D deficiency 10/09/2018 Thyromegaly 10/09/2018 Hidradenitis suppurativa 10/09/2018 Social History Tobacco Use Types Packs/Day Years Used Date Smoking Tobacco: Every Day Cigarettes 0.5 20 Smokeless Tobacco: Never Alcohol Use Standard Drinks/Week Comments Yes 0 (1 standard drink = 0.6 oz pur e alcohol) Comments No Sex and Gender Information Value Date Recorded Sex Assigned at Not on file Legal Sex Female 10:32 AM TUBE PULLER Gender Identity Not on file Sexual Orientation Not on file Last Filed Vital Signs Vital Sign Reading Time Taken Comments Blood Pressure 144/101 11/03/2018 3:11 PM TUBE PULLER Pulse 94 11/03/2018 3:11 PM TUBE PULLER Temperature 36.8 C (98.3 F) 11/03/2018 3:11 PM TUBE PULLER Respiratory Rate - - Oxygen Saturation 96% 11/03/2018 3:11 PM TUBE PULLER Inhaled Oxygen Concentration - - Weight 90.3 kg (199 lb 1.6 oz) 11/03/2018 3:11 P M TUBE PULLER Height 180.3 cm (5' 11 ) 11/03/2018 3:11 PM TUBE PULLER Body Mass Index 27.77 11/03/2018 3:11 PM TUBE PULLER Plan of Treatment Health Maintenance Due Date Last Done Comments DTAP/TDAP/TD VACCINES (1 - Tdap) 1996 HEPATITIS B VACCINES (1 of 3 - 19+ 3-dose series) 05/28 HPV/Cotest (21-29) 1998 PAP SMEAR 1998 CERVICAL CANCER SCREENING 2007 HPV/Cotest (30-65) 2007 PAP SMEAR 2007 BREAST CANCER SCREENING 08/27/2019 08/27/2018 COLORECTAL SCREENING 2022 Colorectal Cancer Screening 2022 FIT-DNA Q 3 years 2022 FIT/FOBT Q 1 year 2022 Flex Sig/CT Colonography Q 5 years 2022 INFLUENZA VACCINE (#1) 2024 Procedures Procedure Name Priority Date/Time Associated Diagnosis Comments MAMMO SCREEN BILAT W OR WO CAD Routine 08/27/2018 from Last 3 Months or Most Recently Relevant to Health Maintenance Results * MAMMO SCREEN BILAT W OR WO CAD (08/27/2018) Anatomical Region Laterality Modality Breast Bilateral Mammography us Abstract Provider MAMMO ORDERABLES Final Result from Last 3 Months or Most Recently Relevant to Health Maintenance Insurance [facility] [id number] Care Teams Urologic Surgeon Relationship Specialty Start Date End Date Michael Fernández MD [address] [place] [phone] PCP - General Gastroenterology 10/09/18
--- OUTSIDE RECORDS SUMMARY | 2025-02-05 07:16 | XMS_ITS | CONTINUITY OF CARE DOCUMENT ---
Author Name boogierayne eleazarmike Address Unknown Organization [facility] Address [address] [facility] [address] [place] [address] Phone [phone] Care Team Providers Care Electric System Operator Name Role Phone Jarvis Lopez MD Unavailable [phone] ALIYAH TORREZ MD Unavailable [phone] ALIYAH TORREZ MD Unavailable [phone] PROBLEMS Condition Status Date Provider Notes Family History of CVA or Stroke: active Zachery Lopez MD Family History of Hypertension: active Royer Lopez MD Overweight active Jarvis Lopez MD Hyperlipidemia active Jarvis Lopez MD Hypertension active Jarvis Lopez MD Chest pain-type to be determined active Zachery Lopez MD ENCOUNTERS Date Type Provider Location Encounter Diag nosis - In-person encounter Office Visit Jarvis Lopez MD [facility] - In-person encounter Office Visit Jarvis Lopez MD [facility] Family History of CVA or Stroke:Family History of Hypertension:Overwe ightHyperlipidemiaH ypertensionChest pain-type to be determined VITAL SIGNS Date Observation Value Provider Body Mass Index (Ratio) 28.45 kg/m2 Royer Lopez MD blood pressure, diastolic 101 mm[Hg] Ch astity Pancho blood pressure, systolic 164 mm[Hg] Yanelis stity Pancho oxygen saturation, oximetry 98 % [facility] pulse rate 57 /min [facility] weight E&M 204 [lb_av] [facility] respiratory rate E&M 16 /min [facility] n[facility] Pancho height E&M 71 [in_i] [facility] Body Mass Index (Ratio) 28.87 kg/m2 Royer Lopez MD blood pressure, diastolic 110 mm[Hg] Li nkLogephraim blood pressure, systolic 160 mm[Hg] Leelee kLogephraim blood pressure, diastolic 110 mm[Hg] Rh sirirui Urbina blood pressure, systolic 160 mm[Hg] Rho ester Urbina pulse rate 83 /min Eugenia Urbina oxygen saturation, oximetry 99 % Eugenia Urbina blood pressure, cuff size regular Kale debby Urbina respiratory rate E&M 18 /min Eugenia Urbina blood pressure, resting Yes Mukesh Harden height E&M 71 [in_i] Eugenia Urbina weight E&M 207 [lb_av] Eugenia Urbina ALLERGIES Allergy Name Onset Date Reaction Criticality Status PENICILLIN High Criticality active HISTORY OF MEDICATION USE Medication Status Instructions Dates Provider Indications Com ments Protonix 20 mg tablet,delayed release (/EC) completed Take 1 tablet by mouth once a day - Jarvis Lopez MD diltiazem HCl 180 mg capsule,extende d release 24hr completed Take 1 capsule by mouth once a day - Jarvis Lopez MD bupropion HCl 300 mg tablet extended release 24 hr active Eugenia Urbina bupropion HCl 300 mg tablet extended release 24 hr completed - Eugenia Urbina quetiapine 150 mg tablet extended release 24 hr active Eugenia Urbina Vitamin D2 1,250 mcg (50,000 unit) capsule active TAKE 1 CAPSULE BY MOUTH ONCE A WEEK Eugenia Urbina lorazepam 0.5 mg tablet active Eugenia Urbina bupropion HCl 150 mg tablet extended release 24 hr active Eugenia Urbina sertraline 100 mg tablet active Eugenia Urbina lisinopril-hydr ochlorothiazide 20-12.5 mg tablet active Eugenia Urbina SOCIAL HISTORY Date Observation Value Provider social history E&M Marital Statu s: Single C hildren: 3 O ccupation: Retired Smoking History: P atient currently smokes every day. Jarvis Lopez MD social history reviewed E&M revi ewed - no changes required Jarvis Lopez MD cigarette use yes Chastity Pancho smoking status Current every day smoker C hasbhavaniy Pancho social history reviewed E&M revi ewed - no changes required Jarvis Lopez MD social history E&M Marital Statu s: Single C hildren: 3 O ccupation: Retired Smoking History: P atient currently smokes every day. Jarvis Lopez MD cigarette use yes Eugenia Urbina smoking status Current every day smoker Jeanne Urbina FAMILY HISTORY Family Member Condition Father Family History Breas t Cancer: Mother Family History of Hy pertension: Mother Family History of Di abetes: Mother Family History of CV A or Stroke: INSURANCE PROVIDERS Payer name Policy type / Coverage type [employer] party ID UHC MEDICARE COMPLETE O Other [id number] ADVANCE DIRECTIVES Name Date DISCUSSED - NO DECISION MADE TREATMENT PLAN Date Name Performer [id number],S, Jarvis mcdonald MD [id number],S, Jarvis mcdonald MD [id number],W,Has not had m edications for 2 days. Jarvis Lopez MD [id number],C,S tress negative, ECHO normal. Non-cardiac CP, likely GERD. Start protonix Jarvis Lopez MD [id number],S, Jarvis mcdonald MD [id number],S, Jarvis mcdonald MD [id number],N,Add diltiazem 180 daily. Check ECHO Jarvis Lopez MD [id number],N,N eeds stress test, cannot walk on treadmill. Will get regadenoson. Jarvis Lopez MD Cardiology Jarvis Lopez MD Cardiology Jarvis Lopez MD Cardiology:Has not had medicatio ns for 2 days. Jarvis Lopez MD Cardiology:Stress ne gative, ECHO normal. Non-cardiac CP, likely GERD. Start protonix Jarvis Lopez MD Cardiology Jarvis Lopez MD Cardiology Jarvis Lopez MD Cardiology:Add diltiazem 180 caro ly. Check ECHO Jarvis Lopez MD Cardiology:Needs str ess test, cannot walk on treadmill. Will get regadenoson. Jarvis Lopez MD Date Name Stress Regadenoson Complete Echo
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
--- OUTSIDE RECORDS SUMMARY | 2025-02-05 07:16 | XMS_ITS | Encounter Summary ---
Author Organization [facility] Address [address] [place] [address] Care Team Providers Care Research Program Internship Name Role Phone Michael Fernández MD Primary Care Provider [phone] Michael Fernández MD Unavailable [phone] Encounter Details Date Type Department Care Team (Late st Contact Info) Description 05/20/2024 Ophth Exam [facility] - Ophthalmology [address] [place] [phone] Trudi Cavazos MD [address] [place], [place] [id number] Social History Tobacco Use Types Packs/Day Years Used Date Smoking Tobacco: Every Day Cigarettes Smokeless Tobacco: Never Alcohol Use Standard Drinks/Week Comments Yes 0 (1 standard drink = 0.6 oz pur e alcohol) AUDIT-C Answer Date Recorded Q1: How often do you have a drink containing alcohol? 4 or more times a week 05/20/2024 Q2: How many drinks containi ng alcohol do you have on a typical day when you are drinking? 5 or 6 Q3: How often do you have si x or more drinks on one occasion? Weekly 05/20/2024 Overall Financial Resource Strain (CARDIA) Answe r Date Recorded How hard is it for you to pa y for the very basics like food, housing, medical care, and heating? Patient declined 05/20/2024 [facility] - Occupational Stress Questionnaire Answer Date Recorded Do you feel stress - tense, restless, nervous, or anxious, or unable to sleep at night because your mind is troubled all the time - these days? Patient declined 05/20/2024 Hunger Vital Sign Answer Date Recorded Within the past 12 months, y ou worried that your food would run out before you got the money to buy more. Patient declined Within the past 12 months, t he food you bought just didn't last and you didn't have money to get more. Patient declined PRAPARE - Transportation Answer Date Re corded In the past 12 months, has l ack of transportation kept you from medical appointments or from getting medications? Patient declined 05/20/2024 In the past 12 months, has l ack of transportation kept you from meetings, work, or from getting things needed for daily living? Patient declined 05/20/2024 Housing Stability Vital Sign Answer Eugene e Recorded In the last 12 months, was t here a time when you were not able to pay the mortgage or rent on time? Patient declined 05/20/20 24 In the last 12 months, how many places have you lived? 0 05/20/2024 In the last 12 months, was t here a time when you did not have a steady place to sleep or slept in a half-way (including now)? Patient declined 05/20/2024 Comments Unknown Sex and Gender Information Value Date Recorded Sex Assigned at Not on file Legal Sex Female 9:[address] Gender Identity Not on file Sexual Orientation Not on file documented as of this encounter Functional Status * Question Answer Date of Assessment Author Q1: How often do you have a drink containing alcohol? 4 or more times a week 05/20/2024 9:18 PM Rocio Sherwood RN Q2: How many drinks containing alcohol do you have on a typical day when you are drinking? 5 or 6 05/20/2024 10:09 PM Rocio Sherwood RN Q3: How often do you have six or more drinks on one occasion? Weekly 05/20/2024 10:09 PM Rocio Sherwood RN * Is person deaf or have serious hearing difficulty? Answer Date of Assessment Author No 09/06/2021 9:[address]PORTER Pau Dowd RN * Is person blind or have serious difficulty seeing? Answer Date of Assessment Author No 09/06/2021 9:13 AM Pau Mohamud RN * Does person have serious difficulty walking/climbing stairs? Answer Date of Assessment Author No 09/06/2021 9:13 AM Pau Mohamud RN * Does person have difficulty dressing/bathing? Answer Date of Assessment Author No 09/06/2021 9:13 AM Pau Mohamud RN * Does person have difficulty doing errands alone? Answer Date of Assessment Author No 09/06/2021 9:13 AM Pau Mohamud RN documented as of this encounter Mental Status * Does person have difficulty concentrating/remembering/making decisions? Answer Entry Date Author No 09/06/2021 9:13 AM Pau Mohamud RN documented in this encounter Plan of Treatment Not on file documented as of this encounter Visit Diagnoses Not on filedocumented in this encounter Care Teams Research Program Internship Relationship Specialty Start Date End Date Michael Fernández MD [address] [place] [address] PCP - General 10/12/18 Michael Fernández MD [address] [place] [address] Gastroenterology 10/12/18 documented as of this encounter
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
--- OUTSIDE RECORDS SUMMARY | 2025-02-05 07:16 | XMS_ITS | Clinical Summary ---
Author Organization [facility] Address [facility] [place] [address] Care Team Providers Care Assistant Office Manager Name Role Phone Michael Fernández MD Primary Care Provider [phone] Allergies Active Allergy Reactions Criticality Noted Date Comments Shar Inhibitors Angioedema 05/16/2024 Penicillins Rash Low 05/16/2024 Medications buPROPion XL (WELLBUTRIN XL) 300 MG 24 hr tablet Take 1 tablet (300 mg total) by mouth daily. Active sertraline (ZOLOFT) 100 MG tablet Take 1 tablet (100 mg total) by mouth 2 (two) times a day. Active hydroCHLOROthia zide (MICROZIDE) 12.5 MG tablet Take 1 tablet (12.5 mg total) by mouth daily. 03/27/2024 Active vitamin D2, ergocalciferol, (DRISDOL) 1.25 mg capsule Take 1 capsule (1.25 mg total) by mouth every 7 days. On Tuesdays04/27/2024 Active amLODIPine (NORVASC) 10 MG tablet Take 1 tablet (10 mg total) by mouth daily. 30 tablet 3 05/19/2024 Active aspirin 81 MG chewable tablet Chew 1 tablet (81 mg total) by mouth daily. 30 tablet 3 05/19/2024 Active atorvastatin (LIPITOR) 40 MG tablet Take 1 tablet (40 mg total) by mouth nightly at bedtime. 30 tablet 3 05/18/2024 Active hydrALAZINE (APRESOLINE) 50 MG tablet Take 1 tablet (50 mg total) by mouth 2 (two) times daily. 60 tablet 3 05/18/2024 Active ferrous sulfate 300 (60 Fe) MG/5ML Solution Take 5 mLs (300 mg total) by mouth daily. 75 mL 05/21/2024 Active Active Problems Problem Noted Date Diagnosed Date Hypertensive emergency 05/16/2024 Social History Tobacco Use Types Packs/Day Years Used Date Smoking Tobacco: Every Day Cigarettes Smokeless Tobacco: Never Tobacco Cessation:Ready to Q uit: No; Counseling Given: Yes Alcohol Use Standard Drinks/Week Comments Yes 0 (1 standard drink = 0.6 oz pur e alcohol) 1 bottle a week B1300 Health Literacy Answer Date Recor ded How often do you need to hav e someone help you when you read instructions, pamphlets, or other written material from your doctor or pharmacy? Never 05/16/2024 [facility] Utilities Answer Date Recorded In the past 12 months has e [employer], gas, oil, or water [employer] threatened to shut off services in your home? Yes 05/16/2024 Humiliation, Afraid, Rape, and Kick questionnair e Answer Date Recorded Within the last year, have y ou been afraid of your partner or ex-partner? No 05/20/2024 Within the last year, have y ou been humiliated or emotionally abused in other ways by your partner or ex-partner? No Within the last year, have y ou been kicked, hit, slapped, or otherwise physically hurt by your partner or ex-partner? No 05/20/2024 Within the last year, have y ou been raped or forced to have any kind of sexual activity by your partner or ex-partner? No 05/20/2024 Social Connection and Isolation Panel [NHANES] A nswer Date Recorded In a typical week, how many times do you talk on the phone with family, friends, or neighbors? Three times a week 05/16/20 How often do you get togethe r with friends or relatives? Once a week 05/16/2024 How often do you attend chur ch or tenriism services? 1 to 4 times per year 05/16/2024 Do you belong to any clubs o r organizations such as judaism groups, unions, fraternal or athletic groups, or school groups? No 05/16/2024 How often do you attend meet ings of the clubs or organizations you belong to? Never 05/16/2024 Are you , , di vorced, , never , or living with a partner? Never 05/16/2024 AUDIT-C Answer Date Recorded Q1: How often do you have a drink containing alc ohol? 2-3 times a week 05/16/2024 Q2: How many drinks containi ng alcohol do you have on a typical day when you are drinking? 5 or 6 05/16/2024 Q3: How often do you have si x or more drinks on one occasion? Less than monthly 05/16/2024 Overall Financial Resource Strain (CARDIA) Answe r Date Recorded How hard is it for you to pa y for the very basics like food, housing, medical care, and heating? Very hard 05/16/2024 [facility] of Occupat ional Health - Occupational Stress Questionnaire Answer Date Recorded Do you feel stress - tense, restless, nervous, or anxious, or unable to sleep at night because your mind is troubled all the time - these days? To some extent 05/16/2024 Hunger Vital Sign Answer Date Recorded Within the past 12 months, y ou worried that your food would run out before you got the money to buy more. Often true 05/16/20 24 Within the past 12 months, t he food you bought just didn't last and you didn't have money to get more. Often true 05/16/2024 PRAPARE - Transportation Answer Date Re corded In the past 12 months, has l ack of transportation kept you from medical appointments or from getting medications? Yes 04/27 In the past 12 months, has l ack of transportation kept you from meetings, work, or from getting things needed for daily living? Yes 05/16/2024 Housing Stability Vital Sign Answer Eugene e Recorded In the last 12 months, was t here a time when you were not able to pay the mortgage or rent on time? Yes 05/16/2024 In the past 12 months, how m any times have you moved where you were living? 0 05/16/2024 At any time in the past 12 m [facility], were you homeless or living in a senior living (including now)? No 05/16/2024 Comments No Sex and Gender Information Value Date Recorded Sex Assigned at Not on file Legal Sex Female 9:08 AM CDT Gender Identity Not on file Sexual Orientation Not on file Last Filed Vital Signs Vital Sign Reading Time Taken Comments Blood Pressure 134/87 05/20/2024 3:19 PM CDT Pulse 67 05/20/2024 3:19 PM CDT Temperature 36.8 C (98.2 F) 05/20/2024 3:19 PM CDT Respiratory Rate 17 05/20/2024 3:19 PM CDT Oxygen Saturation 100% 05/20/2024 3:19 PM CDT Inhaled Oxygen Concentration - - Weight 92 kg (202 lb 12.8 oz) 05/20/2024 4:00 AM CDT Height 180.3 cm (5' 11 ) 05/16/2024 9:13 AM CDT Body Mass Index 28.28 05/16/2024 9:13 AM CDT Plan of Treatment Health Maintenance Due Date Last Done Comments Cervical Cancer Screening Pa p Smear (Age 30 to 64) Every 3 Years 1977 Colorectal Cancer Screening Colonoscopy (10 Years) 1977 Annual Physical 1980 Pneumococcal Vaccine: Pediat rics (0 to 5 Years) and At-Risk Patients (6 to 64 Years) (1 of 2 - PCV) 1983 Hepatitis C 1995 Hepatitis B Vaccines (1 of 3 - 19+ 3-dose series) 1996 Cervical Cancer Screening Pa p with HPV Testing (Age 30 to 64) Every 5 Years 2007 Cervical Cancer Screening with HPV 2007 Mammogram Screening 2017 DTaP, Tdap and Td Vaccines ( 2 - Td or Tdap) 07/03/2020 07/03/2010 COVID-19 Vaccine (2023-2 5 season) 2024 Meningococcal B Vaccine Aged Out No l onger eligible based on patient's age to complete this topic Meningococcal Vaccine Aged Out No navya noel eligible based on patient's age to complete this topic RSV Immunizations Under 20 Months Aged Out No longer eligible based on patient's age to complete this topic Goals Goal Patient Goal Type Associated Problems Recent Progress Patient-Stated? Author Health - patient able to perform ADLs independently Lifestyle No Ledy Wilks, RN Insurance [facility] Advance Directives * Full Code (Latest Code Status on File) Date Activated Date Inactivated Comments 05/16/2024 1:10 PM 05/20/2024 8:22 PM Care Teams Assistant Office Manager Relationship Specialty Start Date End Date Michael Fernández MD [address] [place] [address] PCP - General INTERNAL MEDICINE 05/16/24
--- NOTE | 2025-02-05 07:22 | ECG_ITS ---
Test Date: 2025-02-05 07:29:43 Measurements Intervals [place] Rate: 80 P: 21 CT: 192 QRS: -10 QRSD: 102 T: 5 QT: 396 QTc: 458 Interpretive Statements SINUS RHYTHM INCOMPLETE RIGHT BUNDLE BRANCH BLOCK DELAYED PRECORDIAL R/S TRANSITION BORDERLINE T WAVE ABNORMALITY- INFERIOR LEADS BASELINE ARTIFACT- I, II, AVR BORDERLINE ECG No previous ECG available for comparison Electronically Signed On 02-05-2025 09:55:24 CDT by Ulises Javed D.O.
[2025-02-05 07:23] VITALS: BP 157/97; PULSE 89; RESP 18; TEMP 36.8; O2SAT 100
[2025-02-05 07:35] VITALS: PULSE 88
[2025-02-05 07:42] LABS: Basophils Absolute Auto 0.1 K/mm3 (0.0-0.1); Basophils Percent Auto 0.8 % (0.2-1.2); Eosinophils Absolute Auto 0.1 K/mm3 (0-0.3); Hematocrit 31.2 % (37.0-47.0); Hemoglobin 9.8 g/dL (12.0-15.0); Immature Granulocyte Absolute 0.03 K/mm3 (0.00-0.031); Immature Granulocyte Percent A 0.3 % (0-0.5); Lymphocytes Absolute Auto 1.43 K/mm3 (0.9-3.2); Lymphocytes Percent Auto 16.3 % (18.3-44.2); Mean Corpuscular HGB Conc 31.4 g/dl (32-36); Mean Corpuscular Hemoglobin 25.1 pg (26-34); Mean Corpuscular Volume 79.8 fl (80-100); Mean Platelet Volume 8.4 fl (7.4-10.4); Monocytes Absolute Auto 0.7 K/mm3 (0.1-0.6); Monocytes Percent Auto 7.5 % (2.6-8.5); Neutrophils Absolute Auto 6.5 K/mm3 (1.3-6.7); Neutrophils Percent Auto 74.1 % (45.5-73.1); Platelet Count Result 463 k/mm3 (150-375); Red Blood Count 3.91 M/mm3 (4.2-5.4); Red Cell Distribution Width 18.3 % (11.5-14.5); White Blood Count 8.8 K/mm3 (4.5-10.0)
[2025-02-05 07:56] LABS: Alanine Aminotransferase 18 U/L (6-35); Albumin Level 4.2 g/dL (3.5-5.1); Alkaline Phosphatase 108 U/L (38-126); Anion Gap 7 mmol/L (4-12); Aspartate Amino Transferase 24 U/L (14-36); Bilirubin,Total 0.2 mg/dL (0.2-1.3); Blood Urea Nitrogen 17 mg/dL (7-17); Calcium 10.1 mg/dL (8.4-10.2); Carbon Dioxide 26 mmol/L (22-30); Chloride 106 mmol/L (98-107); Estimated CRCL calculation 83 ml/min; Estimated Glomerular Filt Rate > 60; Glucose 110 mg/dL (65-110); Lipase 53 U/L (23-300); Potassium 3.4 mmol/L (3.4-5.0); Sodium 139 mmol/L (137-145)
[2025-02-05 08:11] LABS: INR 1.1; Partial Thromboplastin Time 30.5 Seconds (22.3-36.8); Prothrombin Time 14.6 Seconds (11.1-14.7); Troponin I < 0.012 ng/mL (0.000-0.034)
--- OUTSIDE RECORDS SUMMARY | 2025-02-05 08:15 | XMS_ITS | Referral Summary ---
Author Organization [facility] Address [address] [place] [address] Phone Care Team Providers Care Aerospace Control [employer] Warning Systems Name Role Phone Maryann Alonzo MD Unavailable Michael Fernández MD Primary Care Provider Yandy Patel MD Unavailable [phone] Encounters Date Type Department Care Team Description 01/18/2025 Orders Only [facility] [address] [place] [phone] Estefania Uriarte MD Visual field defect (Primary Dx); Visual disturbance; Encounter for observation for other suspected diseases and conditions ruled out 01/04/2025 11:45 AM CDT Office Visit [facility] [address] [place] [phone] Yandy Patel MD NIESHA (obstructive sleep apnea) (Primary Dx); Snoring; Frequent headaches; BMI 30.0-30.9,adult; Family history of sleep apnea 12/06/2024 2:40 PM REGISTR[facility] NURSES' REGISTRY Imaging Exam [facility] [address] [place] [phone] 12/06/2024 2:20 PM [facility] NURSES' REG[facility]RY Imaging Exam [facility] [address] [place] [phone] 12/06/2024 1:00 PM REGISTRAR NURSES' REGISTRY Office Visit [facility] [address] [place] [phone] Estefania Uriarte MD Unspecified disorder of visual pathways (Primary Dx); Blurred vision; Encounter for observation for other suspected diseases and conditions ruled out; Snoring; Frequent headaches; BMI 30.0-30.9,adult; Family history of sleep apnea 11/30/2024 Telephone [facility] [address] [facility] [address] [place] [phone] Estefania Uriarte MD 11/23/2024 Telephone [facility] [place] [address] Victor Manuel Johnson Scheduling Appointments from Last [...] (12/06/2021): Added automatically from request for surgery [id number] Conjunctival hemorrhage 11/22/2021 Other vitreous opacity 11/22/2021 [...] on file Legal Sex Female 12:28 AM REGISTRAR NURSES' REGISTRY Gender Identity Not on file Sexual Orientation [...] - BOTH EYES Routine 12/06/2024 2:21 PM REGISTRAR NURSES' REGISTRY Unspecified disorder of visual pathways Encounter for observation for other suspected diseases and conditions ruled out OCT, RETINA - OU - BOTH EYES Routine 12/06/2024 2:21 PM REGISTRAR NURSES' REGISTRY Unspecified disorder of visual pathways Encounter for observation for other suspected diseases and conditions ruled out FISCHER VISUAL FIELD - OU - BOTH EYES Routine 12/06/2024 2:20 PM REGISTRAR NURSES' REGISTRY Unspecified disorder of visual pathways Encounter for observation for other suspected diseases and conditions ruled out PAP ONLY Routine 01/22/2022 2:38 PM CDT from Last 3 Months or Most Recently Relevant to Health Maintenance Results * OCT, Optic Nerve - OU - Both Eyes (12/06/2024 2:21 PM REGISTRAR NURSES' REGISTRY) RNFL OS 89 micrometers CONTINUUM RNFL OD 93 micrometers CONTINUUM Anatomical Region Laterality Modality Head Other Narrative 12/06/2024 2:28 PM REGISTRAR NURSES' REGISTRY Right Eye Reliability was good. Average RNFL thickness 93 micrometers. Left Eye Reliability was good. Average RNFL thickness 89 micrometers. Notes Normal mean RNFL thickness OU (Performed on Zeiss Cirrus OCT) us Estefania Uriarte MD OPHTH TOMOGRAPHY Final Resu lt * OCT, Retina - OU - Both Eyes (12/06/2024 2:21 PM [facility]) Central Macular Thickness OS 236 mircometers CONTINUUM Central Macular Thickness OD 241 micrometers CONTINUUM Anatomical Region Laterality Modality Head Other Narrative 12/06/2024 2:28 PM REGISTRAR NURSES' REGISTRY Right Eye Quality was good. Findings include normal observations. Macular thickness was 241 micrometers. Left Eye Quality was good. Findings include normal observations. Macular thickness was 236 mircometers. Notes Normal mean ganglion cell complex thickness OU (on Zeiss Cirrus OCT) us Estefania Uriarte MD OPHTH TOMOGRAPHY Final Resu lt * Fischer Visual Field - OU - Both Eyes (12/06/2024 2:20 PM [facility]URSES[facility] REG[facility]) Pattern Deviation OS 1.44 dB CONTINUUM Pattern Deviation OD 1.63 dB CONTINUUM Mean Deviation OS -0.61 dB CONTINUUM Mean Deviation OD -1.21 dB CONTINUUM Anatomical Region Laterality Modality Head Other Narrative 12/06/2024 2:28 PM REGISTRAR NURSES' REGISTRY Right Eye Fixation was good. Cooperation was [...] results best viewed via link to PDF [facility] [place] [address] Note to Patients: This report may contain [...] Gender: F : 1975 (Age: 46) Address: [address] [place] [address] Hospital #: [id number] Service: Surgery Location: [facility] Patient Type: [facility] Taken: 01/22/2022 Received: 01/22/2022 Accessioned: 01/23/2022 [...] 70. This HPV test was performed at [facility] in [place], [place] utilizing the Gen-Probe Aptima assay. 01/28/2022 [...] (AUB). The HPV test was performed by [facility], [address] [place] [address]. Report Images and scanned documents, if included only viewable in PDF version The performance characteristics of some immunohistochemical stains, in-situ hybridization and fluorescence in-situ hybridization tests and immunophenotyping by flow cytometry cited in this report (if any) were determined by the Surgical Pathology Department at [facility] as part of an ongoing quality assurance project manager program and in compliance with federally mandated [...] determined by the Surgical Pathology Department of [facility]. It has not been cleared or approved by the U. S. Food and Drug Administration. Citlali Mae DO LAB CYTOLOGY ORDERABLES Fi nal Result from Last 3 Months or Most Recently Relevant to Health Maintenance Insurance [facility] Address: [address] [address] [place] [address] [facility] Address: [address] [address] [place] [address] [employer] [facility] MEDICARE ADVANTAGE [facility] Address: [address] [address] Care Teams [employer] Warning Systems Relationship Specialty Start Date End Date Michael Fernández MD [address] [address] PCP - General Internal Medicine 12/06/24 Maryann Alonzo MD [address] [place] [phone] Consulting Physician Neurology 12/06/24 Yandy Patel MD [address] [place] [address] Consulting Physician Sleep Medicine 01/04/25
--- OUTSIDE RECORDS SUMMARY | 2025-02-05 08:15 | XMS_ITS | Clinical Summary ---
Author Organization [facility] Address [facility] [place] [address] Care Team Providers Care Consultant Internship Name Role Phone Michael Fernández MD Primary Care Provider [phone] Allergies Active Allergy Reactions Criticality Noted Date [...] from your doctor or pharmacy? Never 05/16/2024 [facility] Utilities Answer Date Recorded In the past 12 months has e [employer], gas, oil, or water [employer] threatened to shut off services in your [...] often do you attend chur ch or religion services? 1 to 4 times per year 05/16/2024 Do you belong to any clubs o r organizations such as synagogue groups, unions, fraternal or athletic groups, or [...] medical care, and heating? Very hard 05/16/2024 [facility] [place] of Occupat ional Health - Occupational Stress [...] any time in the past 12 m [facility], were you homeless or living in a skilled nursing (including now)? No 05/16/2024 Comments No Sex [...] independently Lifestyle No Ledy Wilks, RN Insurance [facility] Advance Directives * Full Code (Latest Code Status on File) Date Activated Date Inactivated Comments 05/16/2024 1:10 PM 05/20/2024 8:22 PM Care Teams Consultant Internship Relationship Specialty Start Date End Date Michael Fernández MD [address] [place] [address] PCP - General INTERNAL MEDICINE 05/16/24
--- OUTSIDE RECORDS SUMMARY | 2025-02-05 08:15 | XMS_ITS | CONTINUITY OF CARE DOCUMENT ---
Author Name boogierayne eleazarmike Address Unknown Organization [facility] Address [address] [facility] [address] [place] [address] Phone [phone] Care Team Providers Care Manager Film Name Role Phone Jarvis Lopez MD Unavailable [phone] ALIYAH TORREZ MD Unavailable ALIYAH TORREZ MD Unavailable PROBLEMS Condition Status Date Provider Notes Overweight active Jarvis Lopez MD Hyperlipidemia active Jarvis Lopez MD Hypertension active Jarvis Lopez MD Chest pain-type to be determined active Zachery Lopez MD Family History of Hypertension: active Royer Lopez MD Family History of CVA or Stroke: active Zachery Lopez MD ENCOUNTERS Date Type Provider Location Encounter Diag nosis - In-person encounter Office Visit Jarvis Lopez MD [facility] - In-person encounter Office Visit Jarvis Lopez MD [facility] Family History of CVA or Stroke:Family History of Hypertension:Overwe ightHyperlipidemiaH ypertensionChest pain-type to be determined VITAL SIGNS Date Observation Value Provider Body Mass Index (Ratio) 28.45 kg/m2 Royer Lopez MD blood pressure, diastolic 101 mm[Hg] Ch astity Pancho blood pressure, systolic 164 mm[Hg] Ynaelis stity Pancho oxygen saturation, oximetry 98 % [facility] 57 /min [facility] weight E&M 204 [lb_av] [facility] respiratory rate E&M 16 /min [facility] height E&M 71 [in_i] [facility] Body Mass Index (Ratio) 28.87 kg/m2 Royer [...] Payer name Policy type / Coverage type Reardan red libertarian ID UHC MEDICARE COMPLETE O Other [id number] ADVANCE DIRECTIVES Name Date DISCUSSED - NO DECISION MADE TREATMENT PLAN Date Name Performer [id number],S, Jarvis mcdonald MD [id number],S, Jarvis mcdonald MD [id number],W,Has not had m edications for 2 days. Jarvis Lopez MD [id number],C,S tress negative, ECHO normal. Non-cardiac CP, likely GERD. Start protonix Jarvis Lopez MD [id number],S, Jarvis mcdonald MD [id number],S, Jarvis mcdonald MD [id number],N,Add diltiazem 180 daily. Check ECHO Jarvis Lopez MD [id number],N,N eeds stress test, cannot walk on treadmill. Will get regadenoson. Jarvis Lopez MD Cardiology Jarvis Lopez MD Cardiology Jarvis Lopez MD Cardiology:Has not had medicatio ns for 2 days. Jarvis Lopez MD Cardiology:Stress ne gative, ECHO normal. Non-cardiac CP, likely GERD. Start protonix Jarvis Lopez MD Cardiology Jarvis Lopez MD Cardiology Jarvis Lopez MD Cardiology:Add diltiazem 180 caro ly. Check ECHO Javris Lopez MD Cardiology:Needs str ess test, cannot walk on treadmill. Will get regadenoson. Jarvis Lopez MD Date Name Stress Regadenoson Complete Echo
--- OUTSIDE RECORDS SUMMARY | 2025-02-05 08:15 | XMS_ITS | Encounter Summary ---
Author Organization [facility] Health Address [address] [place] [address] Care Team Providers Care Carpenter Packing Name Role Phone Michael Fernández MD Primary Care Provider [phone] Michael Fernández MD Unavailable [phone] Encounter Details Date Type Department Care Team (Late st Contact Info) Description 05/20/2024 Ophth Exam [facility] - Ophthalmology [address] [place] [phone] Trudi Cavazos MD [address] [place], [place] [id number] Social History Tobacco Use Types Packs/Day Years [...] medical care, and heating? Patient declined 05/20/2024 [facility] [place] of Occupat ional Health - Occupational Stress [...] place to sleep or slept in a mcc (including now)? Patient declined 05/20/2024 Comments Unknown Sex and Gender Information Value Date Recorded Sex Assigned at Not on file Legal Sex Female 9:18 AM CATHETER FINISHER AND INSPECTOR Gender Identity Not on file Sexual Orientation [...] of Assessment Author No 09/06/2021 9:13 AM CATHETER FINISHER AND INSPECTOR Pau Dowd RN * Is person blind [...] of Assessment Author No 09/06/2021 9:13 AM aPu Mohamud RN documented as of this encounter Mental Status * Does person have difficulty concentrating/remembering/making decisions? Answer Entry Date Author No 09/06/2021 9:13 AM Pau Mohamud RN documented in this encounter Plan of Treatment Not on file documented as of this encounter Visit Diagnoses Not on filedocumented in this encounter Care Teams Carpenter Packing Relationship Specialty Start Date End Date Michael Fernández MD [address] [place] [address] PCP - General 10/12/18 Michael Fernández MD [address] [place] [address] Gastroenterology 10/12/18 documented as of this encounter
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
--- OUTSIDE RECORDS SUMMARY | 2025-02-05 08:15 | XMS_ITS | Continuity of Care Document ---
Author Organization [facility] Address [address] [place] [address] [address] [place] [address] Phone Care Team Providers Care Military Source Operations Officer Name Role Phone Unavailable Unavailable Unavailable Allergies, [...] Providers Copied on Encounter [facility], [address] [place] [address], [id number], tel:[phone] OPH CONSULT SUSANA WHEATLEY No Information 0 No Information Referring Provider: Ever Coates, [address] , [place], [address]. tel:[phone] OFFICE/OUTPA TIENT VISIT, [facility], [address] [place] [address], [place], [place], [id number], tel:[phone] OPH CONSULT SUSANA WHEATLEY Conjunctival hemorrhagePai n in or around eyeOther vitreous opacities Sep-2 0-201 0 Yeison Toro. [address] , [address], [place], [place], [id number], [place]. tel:[phone] Referring Provider: Aj Agee, [address], [place], [address]. tel:[phone] Family History Family Member Type Diagnosis Age At Onset No Information Payers Payer name Insurance type Covered libertarian ID Abbi torres(s) Workmans Compensation WC [id number] Social History Type Description Quantity Date Captured [...]
--- OUTSIDE RECORDS SUMMARY | 2025-02-05 08:15 | XMS_ITS | Clinical Summary ---
Author Organization [facility] Address [address] [place] [address] Care Team Providers Care Group Fitness Manager Name Role Phone Michael Fernández MD [...] on file Legal Sex Female 10:32 AM SECRETARY ADMINISTRATIVE ASSISTANT Gender Identity Not on file Sexual Orientation Not on file Last Filed Vital Signs Vital Sign Reading Time Taken Comments Blood Pressure 144/101 11/03/2018 3:11 PM SECRETARY ADMINISTRATIVE ASSISTANT Pulse 94 11/03/2018 3:11 PM SECRETARY ADMINISTRATIVE ASSISTANT Temperature 36.8 C (98.3 F) 11/03/2018 3:11 PM SECRETARY ADMINISTRATIVE ASSISTANT Respiratory Rate - - Oxygen Saturation 96% 11/03/2018 3:11 PM SECRETARY ADMINISTRATIVE ASSISTANT Inhaled Oxygen Concentration - - Weight 90.3 kg (199 lb 1.6 oz) 11/03/2018 3:11 P M SECRETARY ADMINISTRATIVE ASSISTANT Height 180.3 cm (5' 11 ) 11/03/2018 3:11 PM SECRETARY ADMINISTRATIVE ASSISTANT Body Mass Index 27.77 11/03/2018 3:11 PM SECRETARY ADMINISTRATIVE ASSISTANT Plan of Treatment Health Maintenance Due Date [...] Most Recently Relevant to Health Maintenance Insurance [facility] [id number] Care Teams Group Fitness Manager Relationship Specialty Start Date End Date Michael Fernández MD [address] [place] [address] PCP - General Gastroenterology 10/09/18
--- OUTSIDE RECORDS SUMMARY | 2025-02-05 08:15 | XMS_ITS | Clinical Summary ---
Author Organization [facility] Address [address] [place] [address] Care Team Providers Care Practice Physician Name Role Phone Michael Fernández MD Primary Care Provider [phone] Michael Fernández MD Unavailable [phone] Source Comments [facility],non-[facility] Affiliates and Associated Physician Practices is amultiple site organization consisting of ambulatory clinics and hospital sitesin [place], [place], [place] and [place]. This disclosure is being madepursuant to the Care Everywhere program and may not contain all information available regarding this patient. Last updated 18.[facility] Allergies Active Allergy Reactions Criticality Noted Date [...] Active vitamin D, ergocalciferol, (Drisdol) 1.25 MG (46500 UT) capsule Take 1 (one) capsule by [...] (05/25/2024): Added automatically from request for surgery [id number] Pain in or around eye 11/22/2021 Conjunctival [...] medical care, and heating? Patient declined 05/20/2024 [facility] - Occupational [...] on file Legal Sex Female 9:18 AM CASINO CONTROLLER Gender Identity Not on file Sexual Orientation [...] 7 - 26 mg/dL 05/31/2024 12:26 PM [facility] Creatinine 0.94 0.56 - 0.96 mg/dL 05/31/2024 12:26 PM [facility] Sodium 137 136 - 145 mmol/L 05/31/2024 12:26 PM [facility] Potassium 3.6 3.5 - 4.5 mmol/L 05/31/2024 12:26 PM [facility] Chloride 113(H) 98 - 107 mmol/L 05/31/2024 12:26 PM [facility] CO2 18(L) 22 - 29 mmol/L 05/31/2024 12:26 PM [facility] Glucose 117(H) 70 - 115 mg/dL 05/31/2024 12:26 PM [facility] Calcium 10.9(H) 8.4 - 10.2 mg/dL 05/31/2024 12:26 PM [facility] Protein Total 7.7 6.0 - 8.3 g/dL 05/31/2024 12:26 PM [facility] Albumin 3.8 3.4 - 5.0 g/dL 05/31/2024 12:26 PM [facility] Bilirubin Total 0.1(L) 0.2 - 1.2 mg/dL 05/31/2024 12:26 PM [facility] Alkaline Phosphatase 133 40 - 150 U/L 05/31/2024 12:26 PM [facility] ALT 17 5 - 55 U/L 05/31/2024 12:26 PM [facility] AST 19 5 - 34 U/L 05/31/2024 12:26 PM [facility] Anion Gap 6 6 - 16 05/31/2024 12:26 PM [facility] BUN/Creatinine Ratio 15 7 - 23 05/31/2024 12:26 PM [facility] Osmolality Calculated 286 275 - 295 mOsm/kg 05/31/2024 12:26 PM [facility] Albumin/Globulin Ratio 1.0(L) 1.1 - 2.3 05/31/2024 12:26 PM [facility] eGFR by CKD-EPI 76(L) >=90 mL/min/1.7 3 m2 05/31/2024 12:26 PM [facility] Blood BLOOD SPECIMEN / Unknown Lab Venipuncture / Unknown 05/31/2024 11:48 AM T 05/31/2024 11:55 AM [facility] us Jennifer Edmondson MD LAB - CHEMISTRY ORDERA BLES Final Result [facility] [address] [place] [address], [place] [phone] from Last 3 Months or Most Recently Relevant to Health Maintenance Insurance [facility] MANAGED MEDICARE ADV Advance Directives Documents on File Type Date Recorded Patient Clinical Training Specialist Expl anation Adv Directive/Living Will/POA 02/01/2017 * Full Code (Latest Code Status on File) Date Activated Date Inactivated Comments 05/20/2024 8:00 PM 05/25/2024 2:55 PM Care Teams Practice Physician Relationship Specialty Start Date End Date Michael Fernán[place] [address] [place] [phone] PCP - General 10/12/18 Michael Fernández [place] [address] [place] [phone] Gastroenterology 10/12/18
[2025-02-05 08:18] VITALS: BP 143/95; PULSE 83; RESP 18; O2SAT 98
[2025-02-05 08:26] LABS: D Dimer 0.34 ug/mL (<0.48)
[2025-02-05 08:27] LABS: NT Pro B Type Natriuretic Pept 96 pg/mL (19.9-100)
[2025-02-05 09:13] LABS: Amphetamine Screen Urine Negative (Negative); Barbiturate Screen Urine Negative (Negative); Benzodiazepines Screen Urine Negative (Negative); Cannabinoid Screen Urine Negative (Negative); Cocaine Screen Urine Negative (Negative); Methadone Screen Urine Negative (Negative); Opiate Screen Urine Negative (Negative); Phencyclidine Screen Urine Negative (Negative)
[2025-02-05 11:03] LABS: Troponin I < 0.012 ng/mL (0.000-0.034)
--- NOTE | 2025-02-05 11:34 | ED_ITS ---
HPI - General Adult General Chief complaint: Chest Pain Stated complaint: L SHOULDER/CHEST/CALF PAIN Time Seen by Provider: 02/05/25 07:34 History of Present Illness HPI narrative: This is a 49-year-old female presenting to the ED with chief complaint of chest pain. She says she has been having chest pain for the last several weeks. He says it is worse with stress. She says the tightness across her chest. It is nonradiating, moderate intensity. She says it typically last for 1 hour before resolving on her own occurs more than 5 times per day. She has a device that she purchased on take talked that shakes that she stands or sits on it she says that helps. Patient also states she has pain behind her left knee. She has had nausea but no vomiting. She has had some diarrhea. The pain is not exertional. It is associated with vomiting or diaphoresis. She has not had productive, Cough or URI symptoms. No lower extremity edema. Patient is very anxious. Related Data Home Medications ?Medication ?Instructions ?Recorded ?Confirmed ?Last Taken ?Type bupropion HCl 300 mg 24 hr tablet, 300 mg PO DAILY 06/28/21 06/29/21 Unknown History extended release diltiazem HCl 180 mg 180 mg PO DAILY 06/28/21 06/29/21 Unknown History capsule,extended release 24 hr ergocalciferol (vitamin D2) 1,250 1,250 mcg PO WEEKLY 06/28/21 06/29/21 Unknown History mcg (50,000 unit) capsule (Vitamin D2) pantoprazole 20 mg tablet,delayed 20 mg PO DAILY 06/28/21 06/29/21 Unknown History release (Protonix) quetiapine 150 mg tablet,extended 150 mg PO DAILY 06/28/21 06/29/21 Unknown History release 24 hr sertraline 100 mg tablet 100 mg PO DAILY 06/28/21 06/29/21 Unknown History Allergies Allergy/AdvReac Type Severity Reaction Status Date / Time lisinopril Allergy Severe Swelling Verified 02/05/25 07:22 of Lip/Tongue/Throat Penicillins Allergy Severe Rash Verified 02/05/25 07:22 PMF Past Medical History Medical History Uterine fibroid Hypertension Surgical History Surgical History History of delivery x3 Family History Family History Mother Diabetes mellitus Hypothyroid Hypertension Father Hypertension Sibling Lupus Social History Social History Smoking packs per day: 0.25 Smoking cigarettes per day: 5.0 Years smoked: 26 Smoking pack-years: 6.50 Smoking status: Current every day smoker Alcohol intake: current Drinks per week: 1 Substance use: current Substance use type: marijuana Last use: 05/27/2021 Spiritual care concerns: No Exam 2 Narrative: APPEARANCE: No apparent distress. Head: atraumatic. EYES: EOMI, NOSE: Atraumatic NECK: Trachea midline RESPIRATORY: No increased rate of breathing clear to auscultation CARDIOVASCULAR: RRR, no peripheral edema ABDOMINAL: Non-distended soft nontender MUSCULOSKELETAl: No obvious deformities NEURO: Alert. Moving 4/4 extremities SKIN:: Warm, dry. Normal color PSYCHIATRIC: Anxious. Course Vital Signs Vital signs: Vital Signs Temperature 98.2 F 02/05/25 07:23 Pulse Rate 89 02/05/25 07:23 Respiratory Rate 18 02/05/25 07:23 Blood Pressure 157/97 H 02/05/25 07:23 Pulse Oximetry 100 02/05/25 07:23 Oxygen Delivery Room Air 02/05/25 07:23 Temperature 98.2 F 02/05/25 07:23 Pulse Rate 83 02/05/25 08:18 Respiratory Rate 18 02/05/25 08:18 Blood Pressure 143/95 H 02/05/25 08:18 Pulse Oximetry 98 02/05/25 08:18 Oxygen Delivery Room Air 02/05/25 07:23 Medical Decision Making MDM Narrative Medical decision making narrative: -Course: 49-year-old female with anxiety presenting for atypical chest pain. Broad workup including chest x-ray, D-dimer BNP EKG x2 troponin x2 and venous ultrasounds were obtained which were all negative. Results were explained to the patient and she will be discharged follow-up with primary care physician. Given return precautions. -DDX includes but is not limited to: ACS, pneumonia, PE, anxiety, -Co-morbidities complicating care: Anxiety, hypertension Independent EKG interpretation: Rhythm [sinus], Rate [80], Luning -[normal], MD -[normal], QRS [narrow], QTC [normal], T waves -[negative for concerning inversions], ST Segments - [Negative for concerning elevations] Final interpretations: [Normal Sinus Rhythm] Vital Signs Vital Signs: Vital Signs Temperature 98.2 F 02/05/25 07:23 Pulse Rate 89 02/05/25 07:23 Respiratory Rate 18 02/05/25 07:23 Blood Pressure 157/97 H 02/05/25 07:23 Pulse Oximetry 100 02/05/25 07:23 Oxygen Delivery Room Air 02/05/25 07:23 Temperature 98.2 F 02/05/25 07:23 Pulse Rate 83 02/05/25 08:18 Respiratory Rate 18 02/05/25 08:18 Blood Pressure 143/95 H 02/05/25 08:18 Pulse Oximetry 98 02/05/25 08:18 Oxygen Delivery Room Air 02/05/25 07:23 Lab Data 02/05/25 07:38 02/05/25 07:38 Labs: Lab Results 02/05/25 02/05/25 02/05/25 Range/Units 07:38 08:48 10:38 WBC 8.8 (4.5-10.0) K/mm3 RBC 3.91 L (4.2-5.4) M/mm3 Hgb 9.8 L (12.0-15.0) g/dL Hct 31.2 L (37.0-47.0) % MCV 79.8 L (80-100) fl MCH 25.1 L (26-34) pg MCHC 31.4 L (32-36) g/dl RDW 18.3 H (11.5-14.5) % Plt Count 463 H (150-375) k/mm3 MPV 8.4 (7.4-10.4) fl Immature Gran % (Auto) 0.3 (0-0.5) % Neut % (Auto) 74.1 H (45.5-73.1) % Lymph % (Auto) 16.3 L (18.3-44.2) % [place] % (Auto) 7.5 (2.6-8.5) % Eos % (Auto) 1.0 (0-4.4) % Baso % (Auto) 0.8 (0.2-1.2) % Lymph # (Auto) 1.43 (0.9-3.2) K/mm3 [place] # (Auto) 0.7 H (0.1-0.6) K/mm3 Eos # (Auto) 0.1 (0-0.3) K/mm3 Baso # (Auto) 0.1 (0.0-0.1) K/mm3 Abs Immat Gran (auto) 0.03 (0.00-0.031) K/mm3 Absolute Neuts (auto) 6.5 (1.3-6.7) K/mm3 Absolute Nucleated RBC 0.000 (0.0-0.012) K/mm3 Nucleated RBC % 0.0 (0.0-0.2) % PT 14.6 (11.1-14.7) Seconds INR 1.1 APTT 30.5 (22.3-36.8) Seconds D-Dimer 0.34 (<0.48) ug/mL Sodium 139 (137-145) mmol/L Potassium 3.4 (3.4-5.0) mmol/L Chloride 106 (98-107) mmol/L Carbon Dioxide 26 (22-30) mmol/L Anion Gap 7 (4-12) mmol/L BUN 17 (7-17) mg/dL Creatinine 0.95 (0.7-1.0) mg/dL Estim Creat Clear Calc 83 ml/min Estimated GFR > 60 (59 - ) Glucose 110 (65-110) mg/dL Calcium 10.1 (8.4-10.2) mg/dL Total Bilirubin 0.2 (0.2-1.3) mg/dL AST 24 (14-36) U/L ALT 18 (6-35) U/L Alkaline Phosphatase 108 (38-126) U/L Troponin I < 0.012 < 0.012 (0.000-0.034) ng/mL NT-Pro-B Natriuret Pep 96 (19.9-100) pg/mL Total Protein 7.0 (6.3-8.2) g/dL Albumin 4.2 (3.5-5.1) g/dL Lipase 53 (23-300) U/L Urine Opiates Screen Negative (Negative) Urine Methadone Screen Negative (Negative) Ur Barbiturates Screen Negative (Negative) Ur Phencyclidine Scrn Negative (Negative) Ur Amphetamine Screen Negative (Negative) U Benzodiazepines Scrn Negative (Negative) Urine Cocaine Screen Negative (Negative) U Cannabinoids Screen Negative (Negative) Discharge Plan Discharge Clinical Impression: Atypical chest pain Patient Disposition: Home Condition: Stable Instructions: Antibiotic Form, Chest Pain (ED) Additional Instructions: You were seen in the emergency department for chest pain. Thankfully her workup was negative. Please follow-up with your camera person and primary care for further workup. If you develop any new or worsening symptoms please return to the ED for re-evaluation. Patient Language: Brazilian Prescriptions: No Action hydrochlorothiazide 12.5 mg tablet 12.5 mg PO DAILY Qty: 60 0RF diphenhydramine HCl 50 mg capsule 50 mg PO Q12H 5 Days Qty: 10 0RF famotidine 40 mg tablet 40 mg PO BID 5 Days Qty: 10 0RF prednisone 20 mg tablet 20 mg PO DAILY 5 Days Qty: 5 0RF diltiazem HCl 180 mg capsule,extended release 24hr 180 mg PO DAILY Rx Instructions: Pt has not started taking this medication yet sertraline 100 mg tablet 100 mg PO DAILY pantoprazole [Protonix] 20 mg tablet,delayed release (DR/EC) 20 mg PO DAILY ergocalciferol (vitamin D2) [Vitamin D2] 1,250 mcg (50,000 unit) capsule 1,250 mcg PO WEEKLY bupropion HCl 300 mg tablet extended release 24 hr 300 mg PO DAILY quetiapine 150 mg tablet extended release 24 hr 150 mg PO DAILY amoxicillin-pot clavulanate [Augmentin] 875-125 mg tablet 1 tablet PO Q12H Qty: 14 0RF chlorhexidine gluconate 0.12 % mouthwash 15 ml mucous membrane BID Qty: 473 0RF lidocaine 5 % adhesive patch,medicated 1 patch topical DAILY Qty: 6 0RF Rx Instructions: leave on most painful area for up to 12 hrs Follow-up/Referrals: Livier,Michael Agee MD [Primary Care Provider] - 1 Week (atypical chest pain )
[2025-02-05 11:45] VITALS: O2SAT 100
== END 2025-02-05 11:52 | disposition home or self-care (01) ==
PROVIDERS: Emergency Provider Emergency Medicine; PCP Internal Medicine Gastroenterology
DX: R07.89 Other chest pain (principal); I10 Essential (primary) hypertension; F41.9 Anxiety disorder, unspecified; F17.210 Nicotine dependence, cigarettes, uncomplicated; Z79.899 Other long term (current) drug therapy; I45.10 Unspecified right bundle-branch block; R94.31 Abnormal electrocardiogram [ECG] [EKG]
CPT/HCPCS: 36415; 71046; 80053; 80307; 83690; 83880; 84484; 85025; 85380; 85610; 85730; 93005; 93970; 99284

== ENCOUNTER 2025-04-21 15:51 | Emergency (ER) | payer MEDICARE, SELFPAY ==
[2025-04-21 15:52] VITALS: BP 145/92; PULSE 74; RESP 16; TEMP 36.5; O2SAT 100
--- NOTE | 2025-04-21 17:50 | ED_ITS ---
HPI - Headache General Chief Complaint: Headache Stated Complaint: 1000 needles in my head Time Seen by Provider: 04/21/25 17:39 History of Present Illness HPI Narrative: 49-year-old female with history of hypertension, HLD, presents ER complaining of a left posterior headache for 2 weeks. Patient states she has been compliant with her blood pressure medication in taking Tylenol with no improvement. Denies vision or hearing changes. Denies photophobia. Endorses nausea. Patient states she does have a history of similar headaches, requiring evaluation by neuro histologic technician. Patient states 1 point she had to have CSF analysis and CSF pressures measured. Related Data Home Medications ?Medication ?Instructions ?Recorded ?Confirmed ?Last Taken ?Type bupropion HCl 300 mg 24 hr tablet, 300 mg PO DAILY 06/28/21 06/29/21 Unknown History extended release diltiazem HCl 180 mg 180 mg PO DAILY 06/28/21 06/29/21 Unknown History capsule,extended release 24 hr ergocalciferol (vitamin D2) 1,250 1,250 mcg PO WEEKLY 06/28/21 06/29/21 Unknown History mcg (50,000 unit) capsule (Vitamin D2) pantoprazole 20 mg tablet,delayed 20 mg PO DAILY 06/28/21 06/29/21 Unknown History release (Protonix) quetiapine 150 mg tablet,extended 150 mg PO DAILY 06/28/21 06/29/21 Unknown History release 24 hr sertraline 100 mg tablet 100 mg PO DAILY 06/28/21 06/29/21 Unknown History Allergies Allergy/AdvReac Type Severity Reaction Status Date / Time lisinopril Allergy Severe Swelling Verified 02/05/25 07:22 of Lip/Tongue/Throat Penicillins Allergy Severe Rash Verified 02/05/25 07:22 Review of Systems 2 Review of Systems: All systems reviewed & are unremarkable except as noted in HPI and below PMFSH Past Medical History Medical History Uterine fibroid Hypertension Surgical History Surgical History History of delivery x3 Family History Family History Mother Diabetes mellitus Hypothyroid Hypertension Father Hypertension Sibling Lupus Social History Social History Smoking packs per day: 0.25 Smoking cigarettes per day: 5.0 Years smoked: 26 Smoking pack-years: 6.50 Smoking status: Current every day smoker Alcohol intake: current Drinks per week: 1 Substance use: current Substance use type: marijuana Last use: 05/27/2021 Spiritual care concerns: No Exam 2 Const: General: healthy appearing, no acute distress and alert Nutritional Appearance: well nourished and obese Orientation/consciousness: patient oriented x3 Limitations: no limitations HENMT: Head: normal to inspection Eyes: Conjunctivae: conjunctivae normal Pupils: Equal, round and reactive pupils present EOM: EOMs intact bilaterally Resp: Effort & Inspection: normal respiratory effort Auscultation: clear to auscultation bilaterally Cardio: Rate: regular rate Rhythm: regular rhythm Skin: General skin exam: normal color Neuro: General: patient oriented x3, moves all extremities, no meningeal signs, no focal motor deficits and CN's II-XI intact bilaterally Cranial nerves: Yes Nystagmus not present Speech: normal speech Extrem: General: normal to inspection Psych: Mental Status: mental status grossly normal Affect: normal affect Attitude: cooperative Course Vital Signs Vital signs: Vital Signs Temperature 36.5 C 04/21/25 15:52 Pulse Rate 74 04/21/25 15:52 Respiratory Rate 16 04/21/25 15:52 Blood Pressure 145/92 H 04/21/25 15:52 Pulse Oximetry 100 04/21/25 15:52 Oxygen Delivery Room Air 04/21/25 15:52 Temperature 36.5 C 04/21/25 15:52 Pulse Rate 74 04/21/25 15:52 Respiratory Rate 16 04/21/25 15:52 Blood Pressure 145/92 H 04/21/25 15:52 Pulse Oximetry 100 04/21/25 15:52 Oxygen Delivery Room Air 04/21/25 15:52 MDM - Headache MDM Narrative Medical decision making narrative: In summary: 49-year-old female presents to the ER complaining of posterior headache for 2 weeks. Headache was resistant to Tylenol. Of CBC shows evidence of anemia, which is stable to previous encounters. CMP was reassuring. Patient was given headache cocktail, on re-examination reported a significant improvement of her symptoms. Exam was benign. Vitals were stable. Patient has an appointment with Neurology next week. Encourage patient to keep appointment. Patient was discharged home in stable condition. Differential Diagnosis Differential diagnosis: Likely migraine, tension headache, subarachnoid hemorrhage and headache Lab Data 04/21/25 18:03 04/21/25 18:03 Labs: Lab Results 04/21/25 Range/Units 18:03 WBC 6.8 (4.5-10.0) K/mm3 RBC 4.19 L (4.2-5.4) M/mm3 Hgb 9.7 L (12.0-15.0) g/dL Hct 32.0 L (37.0-47.0) % MCV 76.4 L (80-100) fl MCH 23.2 L (26-34) pg MCHC 30.3 L (32-36) g/dl RDW 19.8 H (11.5-14.5) % Plt Count 583 H (150-375) k/mm3 MPV 8.4 (7.4-10.4) fl Immature Gran % (Auto) 0.7 H (0-0.5) % Neut % (Auto) 62.1 (45.5-73.1) % Lymph % (Auto) 27.6 (18.3-44.2) % [place] % (Auto) 6.8 (2.6-8.5) % Eos % (Auto) 1.9 (0-4.4) % Baso % (Auto) 0.9 (0.2-1.2) % Lymph # (Auto) 1.87 (0.9-3.2) K/mm3 [place] # (Auto) 0.5 (0.1-0.6) K/mm3 Eos # (Auto) 0.1 (0-0.3) K/mm3 Baso # (Auto) 0.1 (0.0-0.1) K/mm3 Abs Immat Gran (auto) 0.05 H (0.00-0.031) K/mm3 Absolute Neuts (auto) 4.2 (1.3-6.7) K/mm3 Absolute Nucleated RBC 0.000 (0.0-0.012) K/mm3 Nucleated RBC % 0.0 (0.0-0.2) % Sodium 140 (137-145) mmol/L Potassium 3.8 (3.4-5.0) mmol/L Chloride 107 (98-107) mmol/L Carbon Dioxide 24 (22-30) mmol/L Anion Gap 9 (4-12) mmol/L BUN 10 D (7-17) mg/dL Creatinine 0.74 (0.7-1.0) mg/dL Estim Creat Clear Calc 103 ml/min Estimated GFR > 60 (59 - ) Glucose 122 H (65-110) mg/dL Calcium 10.1 (8.4-10.2) mg/dL Total Bilirubin 0.3 (0.2-1.3) mg/dL AST 31 (14-36) U/L ALT 16 (6-35) U/L Alkaline Phosphatase 86 (38-126) U/L Total Protein 7.4 (6.3-8.2) g/dL Albumin 4.1 (3.5-5.1) g/dL Discharge Plan Discharge Clinical Impression: Anemia Headache Qualifiers: Headache type: unspecified Headache chronicity pattern: acute headache I ntractability: not intractable Qualified Code(s): R51.9 - Headache, unspecified Patient Disposition: Home Condition: Stable Instructions: Antibiotic Form, Migraine Headache (ED), Anemia (ED) Patient Language: Turkish Prescriptions: No Action hydrochlorothiazide 12.5 mg tablet 12.5 mg PO DAILY Qty: 60 0RF diphenhydramine HCl 50 mg capsule 50 mg PO Q12H 5 Days Qty: 10 0RF famotidine 40 mg tablet 40 mg PO BID 5 Days Qty: 10 0RF prednisone 20 mg tablet 20 mg PO DAILY 5 Days Qty: 5 0RF diltiazem HCl 180 mg capsule,extended release 24hr 180 mg PO DAILY Rx Instructions: Pt has not started taking this medication yet sertraline 100 mg tablet 100 mg PO DAILY pantoprazole [Protonix] 20 mg tablet,delayed release (DR/EC) 20 mg PO DAILY ergocalciferol (vitamin D2) [Vitamin D2] 1,250 mcg (50,000 unit) capsule 1,250 mcg PO WEEKLY bupropion HCl 300 mg tablet extended release 24 hr 300 mg PO DAILY quetiapine 150 mg tablet extended release 24 hr 150 mg PO DAILY amoxicillin-pot clavulanate [Augmentin] 875-125 mg tablet 1 tablet PO Q12H Qty: 14 0RF chlorhexidine gluconate 0.12 % mouthwash 15 ml mucous membrane BID Qty: 473 0RF lidocaine 5 % adhesive patch,medicated 1 patch topical DAILY Qty: 6 0RF Rx Instructions: leave on most painful area for up to 12 hrs Follow-up/Referrals: Pradeep,Michael Agee MD [Non-Staff] - Time of Disposition: 18:31
[2025-04-21] MEDS: SODIUM CHLORIDE 0.9% IV 1,000 ML 999 ML IV CONT (17:56)
[2025-04-21] MEDS: dexAMETHasone SOD PHOS INJ 10 MG/ML 1 ML VIAL IV PUSH (17:58)
[2025-04-21] MEDS: diphenhydrAMINE HCl INJ 50 MG/ML VIAL 25 MG IV PUSH (17:59)
[2025-04-21] MEDS: KETOROLAC 30 MG/ML VIAL (*BKC) IV PUSH (18:00)
[2025-04-21] MEDS: METOCLOPRAMIDE HCL INJ 10 MG/2 ML VIAL IV PUSH (18:01)
[2025-04-21 18:13] LABS: Basophils Absolute Auto 0.1 K/mm3 (0.0-0.1); Basophils Percent Auto 0.9 % (0.2-1.2); Eosinophils Absolute Auto 0.1 K/mm3 (0-0.3); Eosinophils Percent Auto 1.9 % (0-4.4); Hemoglobin 9.7 g/dL (12.0-15.0); Immature Granulocyte Absolute 0.05 K/mm3 (0.00-0.031); Immature Granulocyte Percent A 0.7 % (0-0.5); Lymphocytes Absolute Auto 1.87 K/mm3 (0.9-3.2); Lymphocytes Percent Auto 27.6 % (18.3-44.2); Mean Corpuscular HGB Conc 30.3 g/dl (32-36); Mean Corpuscular Hemoglobin 23.2 pg (26-34); Mean Corpuscular Volume 76.4 fl (80-100); Mean Platelet Volume 8.4 fl (7.4-10.4); Monocytes Absolute Auto 0.5 K/mm3 (0.1-0.6); Monocytes Percent Auto 6.8 % (2.6-8.5); Neutrophils Absolute Auto 4.2 K/mm3 (1.3-6.7); Neutrophils Percent Auto 62.1 % (45.5-73.1); Platelet Count Result 583 k/mm3 (150-375); Red Blood Count 4.19 M/mm3 (4.2-5.4); Red Cell Distribution Width 19.8 % (11.5-14.5); White Blood Count 6.8 K/mm3 (4.5-10.0)
[2025-04-21] MEDS: MAGNESIUM SULF 2 GM/WATER 50ML 2 GM/50 ML BAG IVPB (18:13)
[2025-04-21 18:23] LABS: Alanine Aminotransferase 16 U/L (6-35); Albumin Level 4.1 g/dL (3.5-5.1); Alkaline Phosphatase 86 U/L (38-126); Anion Gap 9 mmol/L (4-12); Aspartate Amino Transferase 31 U/L (14-36); Bilirubin,Total 0.3 mg/dL (0.2-1.3); Blood Urea Nitrogen 10 mg/dL (7-17); Calcium 10.1 mg/dL (8.4-10.2); Carbon Dioxide 24 mmol/L (22-30); Chloride 107 mmol/L (98-107); Estimated CRCL calculation 103 ml/min; Estimated Glomerular Filt Rate > 60; Glucose 122 mg/dL (65-110); Potassium 3.8 mmol/L (3.4-5.0); Sodium 140 mmol/L (137-145); Total Protein 7.4 g/dL (6.3-8.2)
== END 2025-04-21 20:31 | disposition home or self-care (01) ==
PROVIDERS: Emergency Provider Nurse Practitioner Family
DX: R51.9 Headache, unspecified (principal); D64.9 Anemia, unspecified; I10 Essential (primary) hypertension; F17.210 Nicotine dependence, cigarettes, uncomplicated
CPT/HCPCS: 36415; 80053; 85025; 96365; 96366; 96375; 99284; J1100; J1200; J1885; J2765; J3475; J7030

== ENCOUNTER 2025-05-31 15:43 | Outpatient (CLI) | payer MEDICARE, SELFPAY ==
--- OUTSIDE RECORDS SUMMARY | 2025-05-31 15:45 | XMS_ITS | Clinical Summary ---
Author Organization [facility] [place] Address [address] [place] [address] Care Team Providers Care Assistant Womens Volleyball Coach Name Role Phone Michael Fernández MD Primary Care Provider Allergies Active Allergy Reactions Criticality Noted Date Comments Lisinopril Swelling Low 05/31/2025 Penicillins Rash Low 10/09/2018 Medications ferrous sulfate 325 mg (65 mg iron) tablet Take 325 mg by mouth daily. Active sertraline (ZOLOFT) 100 mg tablet Take 100 mg by mouth daily. Active amLODIPine (NORVASC) 10 mg tablet Take 10 mg by mouth daily. 5 Active atorvastatin (LIPITOR) 40 mg tablet Take 40 mg by mouth daily. 5 Active aspirin (ECOTRIN EC) 81 mg Tablet, Delayed Release (E.C.) Take 81 mg by mouth daily. 4 Active buPROPion HCL (WELLBUTRIN XL) 300 mg Extended Release 24 hour tablet Take 300 mg by mouth daily. Active hydrALAZINE (APRESOLINE) 50 mg tablet Take 1 tablet twice a day by oral route. Active hydroCHLOROthia zide 12.5 mg tablet Take 12.5 mg by mouth daily. 5 Active LORazepam (ATIVAN) 0.5 mg tablet 5 Active pantoprazole (PROTONIX) 40 mg Tablet, Delayed Release (E.C.) Take 40 mg by mouth daily. Active albuterol sulfate HFA 90 mcg/actuation aerosol inhaler Take 2 Puffs by inhalation every 6 hours as needed for Wheezing. 5 Active Active Problems Problem Noted Date Diagnosed Date Breast fibroadenoma, right 11/05/2018 Abnormal mammogram of right breast 10/09/2018 Abnormal ultrasound of breast 10/09/2018 Vitamin D deficiency 10/09/2018 Thyromegaly 10/09/2018 Hidradenitis suppurativa 10/09/2018 Encounters Date Type Department Care Team Description 05/31/2025 3:00 PM CDT Office Visit [facility] Oncology and Hematology [facility] [address] [place] [address] Saji Almaguer MD Chronic anemia (Primary Dx) 05/11/2025 External Device Data [facility] ABSTRACTION Provider, Abstract 05/11/2025 External Device Data [facility] ABSTRACTION Provider, Abstract 04/26/2025 External Device Data [facility] ABSTRACTION Provider, Abstract 04/26/2025 External Device Data [facility] ABSTRACTION Provider, Abstract 04/26/2025 External Device Data [facility] ABSTRACTION Provider, Abstract 04/21/2025 Telephone [facility] Oncology [facility] [address] [place] [address] Saji Almaguer MD Requesting Sooner Appointment from Last 3 Months Family History Medical History Relation Name Comments No Known Problems Child No Known Problems Father Diabetes Mother No Known Problems Sister Relation Name Status Comments Child Alive Father Alive Mother Alive Sister Alive Social History Tobacco Use Types Packs/Day Years Used Date Smoking Tobacco: Every Day Cigarettes 0.5 25 Started: 05/31/2000 Smokeless Tobacco: Never Tobacco Cessation:Ready to Q uit: Not Asked; Counseling Given: Not Answered Alcohol Use Standard Drinks/Week Comments Yes 0 (1 standard drink = 0.6 oz pur e alcohol) Comments No Sex and Gender Information Value Date Recorded Sex Assigned at Not on file Legal Sex Female 10:32 AM NURSE PRACTITIONER PER DIEM Gender Identity Not on file Sexual Orientation Not on file Last Filed Vital Signs Vital Sign Reading Time Taken Comments Blood Pressure 138/95 05/31/2025 3:16 PM CDT Pulse 82 05/31/2025 3:10 PM CDT Temperature 36.5 C (97.7 F) 05/31/2025 3:10 PM CDT Respiratory Rate 16 05/31/2025 3:10 PM CDT Oxygen Saturation 98% 05/31/2025 3:10 PM CDT Inhaled Oxygen Concentration - - Weight 94.3 kg (207 lb 12.8 oz) 05/31/2025 3:10 PM CDT Height 180.3 cm (5' 11) 05/31/2025 3:10 PM CDT Body Mass Index 28.98 05/31/2025 3:10 PM CDT Plan of Treatment Upcoming Encounters Date Type Department Care Team (Late st Contact Info) Description 06/07/2025 4:30 PM CDT Telephone Check Up [facility] Oncology and Hematology - [place] [address] [place] [address] Saji Almaguer MD [address] [place] [address] Health Maintenance Due Date Last Done Comments Pre-Diabetes and Diabetes Screening 1975 DTAP/TDAP/TD VACCINES (1 - Tdap) 1996 HEPATITIS B VACCINES (1 of 3 - 19+ 3-dose series) 05/28 HPV/Cotest (21-29) 1998 CERVICAL CANCER SCREENING 2007 HPV/Cotest (30-65) 2007 PAP SMEAR 2007 BREAST CANCER SCREENING 08/27/2019 08/27/2018 COLORECTAL SCREENING 2022 Colorectal Cancer Screening 2022 FIT-DNA Q 3 years 2022 FIT/FOBT Q 1 year 2022 Flex Sig/CT Colonography Q 5 years 2022 Medicare Advantage ([place]) Prev entative Visit/Annual Wellness Visit 10/27/2024 INFLUENZA VACCINE (#1) 2025 Procedures Procedure Name Priority Date/Time Associated [...] Most Recently Relevant to Health Maintenance Insurance [facility] [id number] [facility] [id number] Care Teams Assistant Womens Volleyball Coach Relationship Specialty Start Date End Date Michael Fernández MD [address] [place] [address] PCP - General Gastroenterology 10/09/18
--- OUTSIDE RECORDS SUMMARY | 2025-05-31 15:45 | XMS_ITS | Clinical Summary ---
Author Organization [facility] Address [address] [place] [address] Care Team Providers Care Plant Packer Name Role Phone Michael Fernández MD Primary Care Provider [phone] Michael Fernández MD Unavailable [phone] Source Comments [facility],non-owned Affiliates and Associated Physician Practices is amultiple site organization consisting of ambulatory clinics and hospital sitesin [place], [place], [place] and [place]. This disclosure is being madepursuant to the Care Everywhere program and may not contain all information available regarding this patient. Last updated 18.[facility] Allergies Active Allergy Reactions Criticality Noted Date [...] Active vitamin D, ergocalciferol, (Drisdol) 1.25 MG (29355 UT) capsule Take 1 (one) capsule by [...] EVERY 24 HOURS 30 patch 2 05/25/2024 Active atorvastatin (Lipitor) 40 MG tabletIndicatio ns:Hypertensive [...] (05/25/2024): Added automatically from request for surgery [id number] Pain in or around eye 11/22/2021 Conjunctival [...] medical care, and heating? Patient declined 05/20/2024 [facility] - Occupational Stress [...] place to sleep or slept in a snf (including now)? Patient declined 05/20/2024 Comments Unknown Sex and Gender Information Value Date Recorded Sex Assigned at Not on file Legal Sex Female 9:18 AM CLIENT ACCOUNT REPRESENTATIVE Gender Identity Not on file Sexual Orientation [...] 1:00 PM CDT Height 180.3 cm (5' 11) 05/31/2024 9:56 AM CDT Body Mass Index [...] 11/22/2021 (Done Outside Per Report) INFLUENZA VACCINE (#1) 2025 SCREENING FOR DIABETES 05/31/2027 , 05/25/2024, 05/24/2024, Additional history exists ZOSTER VACCINE (1 of 2) 2027 LIPID TESTING 05/16/2029 05/16/2024 COLON MONITORING 09/06/2031 09/06/2021, 09/06/2021 COLONOSCOPY - COLON CA SCREENING 09/06/2031 09/06/2021, 09/06/2021 Colorectal Cancer Screening 09/06/2031 HIB VACCINE [...] headache, unspecified chronicity pattern, unspecified headache type ENDOSCOPY, COLON, DIAGNOSTIC Routine 09/06/2021 8:10 AM CLIENT ACCOUNT REPRESENTATIVE from Last 3 Months or Most Recently Relevant to Health Maintenance Results * (ABNORMAL) COMPREHENSIVE METABOLIC PANEL (05/31/2024 11:48 AM CDT) BUN 14 7 - 26 mg/dL 05/31/2024 12:26 PM CDT [facility] Creatinine 0.94 0.56 - 0.96 mg/dL 05/31/2024 12:26 PM CDT [facility] Sodium 137 136 - 145 mmol/L 05/31/2024 12:26 PM T [facility] Potassium 3.6 3.5 - 4.5 mmol/L 05/31/2024 12:[address] [facility] Chloride 113(H) 98 - 107 mmol/L 05/31/2024 12:[address] [facility] CO2 18(L) 22 - 29 mmol/L 05/31/2024 12:[address] [facility] Glucose 117(H) 70 - 115 mg/dL 05/31/2024 12:[address] [facility] Calcium 10.9(H) 8.4 - 10.2 mg/dL 05/31/2024 12:[address] [facility] Protein Total 7.7 6.0 - 8.3 g/dL 05/31/2024 12:[address] [facility] Albumin 3.8 3.4 - 5.0 g/dL 05/31/2024 12:[address] [facility] Bilirubin Total 0.1(L) 0.2 - 1.2 mg/dL 05/31/2024 12:[address] [facility] Alkaline Phosphatase 133 40 - 150 U/L 05/31/2024 12:[address] [facility] ALT 17 5 - 55 U/L 05/31/2024 12:[address] [facility] AST 19 5 - 34 U/L 05/31/2024 12:[address] [facility] Anion Gap 6 6 - 16 05/31/2024 12:[address] [facility] BUN/Creatinine Ratio 15 7 - 23 05/31/2024 12:[address] [facility] Osmolality Calculated 286 275 - 295 mOsm/kg 05/31/2024 12:[address] [facility] Albumin/Globulin Ratio 1.0(L) 1.1 - 2.3 05/31/2024 12:[address] [facility] eGFR by CKD-EPI 76(L) >=90 mL/min/1.7 3 m2 05/31/2024 12:[address] [facility] Blood BLOOD SPECIMEN / Unknown Lab Venipuncture / Unknown 05/31/2024 11:48 AM CDT 05/31/2024 11:55 AM T Jennifer Edmondson MD LAB - CHEMISTRY ORDERA BLES Final Result [facility] [address] [place] [address], [facility] [phone] * ENDOSCOPY, COLON, DIAGNOSTIC (09/06/2021 8:10 AM CLIENT ACCOUNT REPRESENTATIVE) Report Endoscopy POC _ Patient Name: Armin Pang Procedure Date: 09/06/2021 8:10 AM Date of : 1975 Admit Type: Outpatient Age: 46 Gender: Female Ethnicity: Not or Race: Black or Attending MD: Curry Wren MD _ Procedure: Colonoscopy Indications: Rectal bleeding Providers: Curry Wren MD (Doctor), Jocelyn Nance RN, Guillermina Garza, Parts Delivery Driver Referring MD: Michael Fernández MD (Referring MD) Medicines: Monitored Anesthesia Care Complications: No immediate complications. _ Estimated Blood Loss: Estimated blood loss: none. Procedure: Pre-Anesthesia Assessment: - Prior to the procedure, a History and Physical was performed, and patient medications and allergies were reviewed. The patient is competent. The risks and benefits of the procedure and the sedation options and risks were discussed with the patient. All questions were answered and informed consent was obtained. Patient identification and proposed procedure were verified by the physician, the nurse and the configuration technician in the procedure room. Mental Status Examination: alert and oriented. Airway Examination: normal oropharyngeal airway and neck mobility. Respiratory Examination: clear to auscultation. CV Examination: normal. Prophylactic Antibiotics: The patient does not require prophylactic antibiotics. Prior Anticoagulants: The patient has taken no previous anticoagulant or antiplatelet agents. ASA Grade Assessment: II - A patient with mild systemic disease. After reviewing the risks and benefits, the patient was deemed in satisfactory condition to undergo the procedure. The anesthesia plan was to use monitored anesthesia care (MAC). Immediately prior to administration of medications, the patient was re-assessed for adequacy to receive sedatives. The heart rate, respiratory rate, oxygen saturations, blood pressure, adequacy of pulmonary ventilation, and response to care were monitored throughout the procedure. The physical status of the patient was re-assessed after the procedure. After I obtained informed consent, the scope was passed under direct vision. Throughout the procedure, the patient's blood pressure, pulse, and oxygen saturations were monitored continuously. The Colonoscope was introduced through the anus and advanced to the cecum, identified by appendiceal orifice and ileocecal valve. The colonoscopy was performed without difficulty. The patient tolerated the procedure well. The quality of the bowel preparation was good. The ileocecal valve, the appendiceal orifice and the rectum were photographed. Impression: - Non-bleeding internal hemorrhoids. - The examination was otherwise normal on direct and retroflexion views. - No specimens collected. Findings: The perianal and digital rectal examinations were normal. Pertinent negatives include normal sphincter tone. Non-bleeding internal hemorrhoids were found during retroflexion. The hemorrhoids were moderate. The exam was otherwise without abnormality on direct and retroflexion views. _ Recommendation: - Patient has a contact number available for emergencies. The signs and symptoms of potential delayed complications were discussed with the patient. Return to normal activities tomorrow. Written discharge instructions were provided to the patient. - Resume previous diet. - Continue present medications. - Preparation H suppository: Insert rectally daily for 1 week. - Repeat colonoscopy in 10 years for screening purposes. - Return to primary care physician as previously scheduled. Procedure Code(s): --- Professional --- 17465, Colonoscopy, flexible; diagnostic, including collection of specimen(s) by brushing or washing, when performed (separate procedure) --- Technical --- 15663, Colonoscopy, flexible; diagnostic, including collection of specimen(s) by brushing or washing, when performed (separate procedure) Diagnosis Code(s): --- Professional --- K64.8, Other hemorrhoids K62.5, Hemorrhage of anus and rectum --- Technical --- K64.8, Other hemorrhoids K62.5, Hemorrhage of anus and rectum CPT copyright 2019 [employer]. All rights reserved. The codes documented in this report are preliminary and upon regional telecommunications specialist review may be revised to meet current compliance requirements. Curry Wren MD 09/06/2021 9:27:07 AM This report has been signed electronically. Number of Addenda: 0 Note Initiated On: 09/06/2021 8:10 AM [facility] ENDOSCOPY 09/06/2021 8:10 AM CLIENT ACCOUNT REPRESENTATIVE Curry Wren MD GI PROCEDURE ORDERABLES Edited Result - Final [facility] ENDOSCOPY from Last 3 Months or Most Recently Relevant to Health Maintenance Insurance [facility] MANAGED MEDICARE ADV Advance Directives Documents on File Type Date Recorded Patient Tile Presser Expl anation Adv Directive/Living Will/POA 02/01/2017 * Full Code (Latest Code Status on File) Date Activated Date Inactivated Comments 05/20/2024 8:00 PM 05/25/2024 2:55 PM Care Teams Plant Packer Relationship Specialty Start Date End Date Michael Fernández MD [address] [place] [address] PCP - General 10/12/18 Michael Fernández MD [address] [place] [address] Gastroenterology 10/12/18
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
--- OUTSIDE RECORDS SUMMARY | 2025-05-31 15:45 | XMS_ITS | Referral Summary ---
Author Organization [facility] Address [address] [place] [address] Phone Care Team Providers Care Iap Displays Analyst Name Role Phone Maryann Alonzo MD Unavailable Michael Fernández MD Primary Care Provider Yandy Patel MD Unavailable [phone] Encounters Date Type Department Care Team Description 05/05/2025 4:00 PM CDT - 05/05/2025 11:59 PM CDT Hospital Encounter [facility] Respiratory Therapy [address] [place] [phone] Shortness of breath; Wheezing; Cough, unspecified type; Marijuana use; Cigarette nicotine dependence without complication; BMI 29.0-29.9,adult Discharge Disposition: Discharge to home or self care 04/19/2025 1:15 PM CDT Office Visit [facility] Pulmonology [address] [facility] [address] [place] [phone] Enma Powell NP NIESHA (obstructive sleep apnea) (Primary Dx); Shortness of breath; Wheezing; Cough, unspecified type; Psychophysiological insomnia; Restless leg syndrome; Family history of sleep apnea; Marijuana use; Cigarette nicotine dependence without complication; BMI 29.0-29.9,adult 04/12/2025 Telephone [facility] Sleep Lab [address] [place], [place] [phone] Laurence Singh, [facility] Sleep Study Reults/CPAP order 04/07/2025 11:00 AM CDT - 04/07/2025 11:59 PM CDT Hospital Encounter [facility] Sleep Lab [address] [place] [address] Snoring; Frequent headaches; BMI 30.0-30.9,adult; Family history of sleep apnea; NIESHA (obstructive sleep apnea) Discharge Disposition: Discharge to home or self care 03/01/2025 Orders Only [facility] Ophthalmology [address] 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 SALESPERSON Gender Identity Not on file Sexual Orientation [...] 04/19/2025 1:16 PM CDT Plan of Treatment Not on file [...] FVC PRE 3.51 2.92 - 4.71 L [facility] FEV1 PRE 3.02 2.31 - 3.73 L [facility] [id number] 85.97 69.77 - 89.33 % [facility] ILR11-69% PRE 3.92 1.44 - 4.80 L/s [facility] PEF PRE 9.51(A) 5.92 - 8.88 L/s [facility] DLCOc SB 19.23(A) 23.26 - 34.72 ml/(min*mm Hg) [facility] DLCO/VA PRE 3.87 3.53 - 5.96 ml/(min*mm Hg*L) [facility] VA 4.96(A) 5.96 - 5.96 L [facility] TLC PRE 5.92 5.13 - 7.10 L [facility] VC PRE 3.73 3.30 - 4.69 L [facility] IC PRE 3.44(A) 2.93 - 2.93 L [facility] FRC PL PRE 2.48 2.26 - 3.91 L [facility] ERV PRE 0.29(A) 1.07 - 1.07 L [facility] RV PRE 2.19 1.44 - 2.59 L [facility] VTG 2.56 L [facility] RAW PRE 2.86(A) 3.06 - 3.06 cmH2O*s/L [facility] Anatomical Region Laterality Modality PFT 05/05/2025 4:11 [...] signed by Nadira Joyner MD Enma Powell NP PFT ORDERABLES Final Result * Portable/Home Sleep Study (04/07/2025 11:00 AM CDT) Yandy Patel MD SLEEP CENTER ORDERABLES Fin al Result Performing Organization Address City/State/[facility] Co de Phone Number [facility] SLEEP MEDICINE [address] [place] [address] * Pap Only (01/22/2022 2:38 PM CDT) Pap test 01/22/2022 2:38 PM CDT 01/22/2022 5:31 PM CDT Narrative 01/28/2022 12:41 PM CDT EPIC results best viewed via link to PDF [facility] Jessy Adhikari Laboratory [place] [address] Note to Patients: This report may contain [...] Gender: F : 1975 (Age: 46) Address: [address] [place] [address] Hospital #: [id number] Service: Surgery Location: [facility] Patient Type: [facility] Taken: 01/22/2022 Received: 01/22/2022 Accessioned: 01/23/2022 Reported: [...] 68. This HPV test was performed at [facility] in [place], [place] utilizing the Gen-Probe Aptima assay. swapna01/28/2022 [...] (AUB). The HPV test was performed by [facility], [address] [place] [address]. Report Images and scanned documents, if included only viewable in PDF version The performance characteristics of some immunohistochemical stains, in-situ hybridization and fluorescence in-situ hybridization tests and immunophenotyping by flow cytometry cited in this report (if any) were determined by the Surgical Pathology Department at [facility] as part of an ongoing software quality assurance engineer program and in compliance with federally mandated [...] determined by the Surgical Pathology Department of [facility]. It has not been cleared or approved by the U. S. Food and Drug Administration. Citlali Mae DO LAB CYTOLOGY ORDERABLES Fi nal Result from Last 3 Months or Most Recently Relevant to Health Maintenance Insurance [facility] MEDICARE ADVANTAGE [facility] Address: [facility] [id number] [place] [phone] [facility] MDCR HMO REF [facility] Address: [address] [address] [place] [address] IDPA [facility] MEDICARE ADVANTAGE [facility] Address: [address] [address] [place] [address] Care Teams Iap Displays Analyst Relationship Specialty Start Date End Date Michael Fernández MD [address] [place] [address] PCP - General Internal Medicine 12/06/24 Maryann Alonzo MD [address] [place] [phone] Consulting Physician Neurology 12/06/24 Yandy Patel MD [address] [place] [address] Consulting Physician Sleep Medicine 01/04/25
--- OUTSIDE RECORDS SUMMARY | 2025-05-31 15:45 | XMS_ITS | Encounter Summary ---
Author Organization [facility] Health Address [address] [facility] [place] [address] Care Team Providers Care Kiln Loader Name Role Phone Michael Fernández MD Primary Care Provider [phone] Michael Fernández MD Unavailable Encounter Details Date Type Department Care Team (Late st Contact Info) Description 05/20/2024 Ophth Exam [facility] - Ophthalmology [address] [place] [phone] Trudi Cavazos MD [address] [place], [place] [phone] Social History Tobacco Use Types Packs/Day Years [...] medical care, and heating? Patient declined 05/20/2024 [facility] of Occupat ional Health - Occupational Stress [...] place to sleep or slept in a senior care (including now)? Patient declined 05/20/2024 Comments Unknown Sex and Gender Information Value Date Recorded Sex Assigned at Not on file Legal Sex Female 9:18 AM INFECTIOUS DISEASE TECHNICIAN Gender Identity Not on file Sexual Orientation [...] of Assessment Author No 09/06/2021 9:13 AM INFECTIOUS DISEASE TECHNICIAN Pau Dowd RN * Is person blind [...] on filedocumented in this encounter Care Teams Kiln Loader Relationship Specialty Start Date End Date Michael Fernández MD [address] [place] [address] PCP - General 10/12/18 Michael Fernández MD [address] [place] [address] Gastroenterology 10/12/18 documented as of this encounter
--- OUTSIDE RECORDS SUMMARY | 2025-05-31 15:45 | XMS_ITS | Patient Health Record ---
Author Organization [facility] [employer] Address [facility] [facility] [[email or web address] [address] [place] [address] Care Team Providers Care Outpatient Psychiatrist Name Role Phone Dov Henderson Unavailable [phone] Reason For Referral No Information Plan Of Treatment No Information
--- OUTSIDE RECORDS SUMMARY | 2025-05-31 15:45 | XMS_ITS | Encounter Summary ---
Author Organization [facility] Address [address] [place] [address] Care Team Providers Care Interior Design Director Name Role Phone Michael Fernández MD Primary Care Provider Encounter Details Date Type Department Care Team (Late st Contact Info) Description 05/31/2025 3:00 PM CDT Office Visit [facility] Oncology and Hematology - Jacob [address] [facility] [address] [place] [address] Saji Almaguer MD [address] [facility] [address] [place] [address] Chronic anemia (Primary Dx) Social History Tobacco Use Types Packs/Day Years [...] on file Legal Sex Female 10:32 AM SOCCER REFEREE Gender Identity Not on file Sexual Orientation Not on file documented as of this encounter Last Filed Vital Signs Vital Sign Reading [...] Mass Index 28.98 05/31/2025 3:10 PM CDT documented in this encounter Plan of Treatment Upcoming Encounters Date Type Department Care Team (Late st Contact Info) Description 06/07/2025 4:30 PM CDT Telephone Check Up [facility] Oncology and Hematology - Jacob [address] [facility] [address] [place] [address] Saji Almaguer MD [address] [facility] [address] [place] [address] Scheduled Orders Name Type Priority Associated Diagnoses Orde r Schedule CBC WITH DIFFERENTIAL Lab Stat Chronic anemia Expected: 05/31/2025, Expires: 05/31/2026 COMPREHENSIVE METABOLIC PANEL Lab Stat Chronic anemia Expected: 05/31/2025, Expires: 05/31/2026 FERRITIN Lab Routine Chronic anemia Expected: 05/31/2025, Expires: 05/31/2026 IRON, TIBC, AND PERCENT SATURATION Lab Routine Chronic anemia Expected: 05/31/2025, Expires: 05/31/2026 METHYLMALONIC ACID Lab Routine Chronic anemia Expected: 05/31/2025, Expires: 05/31/2026 TRANSFERRIN RECEPTOR TFR SOLUBLE Lab Routine Chronic anemia Expected: 05/31/2025, Expires: 05/31/2026 VITAMIN B12 AND FOLATE Lab Routine Chronic anemia Expected: 05/31/2025, Expires: 05/31/2026 TSH Lab Routine Chronic anemia Expected: 05/31/2025, Expires: 05/31/2026 documented as of this encounter Visit Diagnoses Diagnosis Chronic anemia- Primary Anemia, unspecified documented in this encounter Care Teams Interior Design Director Relationship Specialty Start Date End Date Michael Fernández MD [address] [place] [address] PCP - General Gastroenterology 10/09/18 documented as of this encounter
--- OUTSIDE RECORDS SUMMARY | 2025-05-31 15:45 | XMS_ITS | Clinical Summary ---
Author Organization [facility] Address [facility] [place] [address] Care Team Providers Care Hammer Operator Name Role Phone Michael Fernández MD Primary Care Provider Unavail able Allergies Active Allergy Reactions Criticality Noted Date [...] from your doctor or pharmacy? Never 05/16/2024 [facility] Utilities Answer Date Recorded In the past 12 months has e [employer], gas, oil, or water [employer] threatened to shut off services in your [...] often do you attend chur ch or episcopal services? 1 to 4 times per year 05/16/2024 Do you belong to any clubs o r organizations such as yarsanism groups, unions, fraternal or athletic groups, or [...] medical care, and heating? Very hard 05/16/2024 [facility] of Occupat ional Health - Occupational [...] any time in the past 12 m [facility], were you homeless or living in a residential (including now)? No 05/16/2024 Comments No Sex [...] 4:00 AM CDT Height 180.3 cm (5' 11) 05/16/2024 9:13 AM CDT Body Mass Index 28.28 05/16/2024 9:13 AM CDT Plan of Treatment Health Maintenance Due Date Last Done Comments Cervical Cancer Screening Pa p Smear (Age 30 to 64) Every 3 Years 1977 Colorectal Cancer Screening Colonoscopy (10 Years) 1977 Annual Physical 1980 Hepatitis C 1995 Hepatitis B Vaccines (1 of 3 - 19+ 3-dose series) 1996 Pneumococcal Vaccine: Pediat rics (0 to 5 Years) and At-Risk Patients (6 to 49 Years) (1 of 2 - PCV) 1996 Cervical Cancer Screening Pa p with [...] independently Lifestyle No Ledy Wilks, RN Insurance [facility] Advance Directives * Full Code (Latest Code Status on File) Date Activated Date Inactivated Comments 05/16/2024 1:10 PM 05/20/2024 8:22 PM Care Teams Hammer Operator Relationship Specialty Start Date End Date Michael Fernández MD PCP - General INTERNAL MEDICINE 05/16/24
[2025-05-31 15:59] LABS: Hematocrit 26.9 % (37.0-47.0); Hemoglobin 8.1 g/dL (12.0-15.0); Immature Granulocyte Percent A 0.2 % (0-0.5); Lymphocytes Absolute Auto 1.38 K/mm3 (0.9-3.2); Mean Corpuscular HGB Conc 30.1 g/dl (32-36); Mean Corpuscular Hemoglobin 21.3 pg (26-34); Mean Corpuscular Volume 70.6 fl (80-100); Nucleated Red Blood Cells Absolute Auto 0.000 K/mm3 (0.0-0.012); Nucleated Red Blood Cells Perc 0.0 % (0.0-0.2); Platelet Count Result 487 k/mm3 (150-375); Red Blood Count 3.81 M/mm3 (4.2-5.4); White Blood Count 5.9 K/mm3 (4.5-10.0)
[2025-05-31 16:34] LABS: Iron 21 ug/dL (37-170)
[2025-05-31 16:35] LABS: Alanine Aminotransferase 15 U/L (6-35); Albumin Level 4.1 g/dL (3.5-5.1); Alkaline Phosphatase 116 U/L (38-126); Anion Gap 5 mmol/L (4-12); Aspartate Amino Transferase 26 U/L (14-36); Bilirubin,Total 0.1 mg/dL (0.2-1.3); Blood Urea Nitrogen 13 mg/dL (7-17); Calcium 10.4 mg/dL (8.4-10.2); Carbon Dioxide 27 mmol/L (22-30); Chloride 105 mmol/L (98-107); Estimated Glomerular Filt Rate > 60; Glucose 94 mg/dL (65-110); Potassium 3.8 mmol/L (3.4-5.0); Sodium 137 mmol/L (137-145); Total Protein 7.2 g/dL (6.3-8.2)
[2025-05-31 16:43] LABS: Percent Iron Saturation 5 % (20-50)
[2025-05-31 18:08] LABS: Thyroid Stimulating Hormone 0.757 uIU/mL (0.465-4.680)
[2025-05-31 18:14] LABS: Ferritin 5.59 ng/mL (6.24-137)
[2025-05-31 18:44] LABS: Vitamin B12 539.0 pg/mL (239-931)
== END 2025-05-31 15:44 | disposition home or self-care (01) ==
PROVIDERS: Visit Provider Internal Medicine Hematology & Oncology
DX: D64.9 Anemia, unspecified (principal)
CPT/HCPCS: 36415; 80053; 82607; 82728; 82746; 83540; 83550; 84238; 84443; 85025

== ENCOUNTER 2025-08-05 11:17 | Outpatient (CLI) | payer MEDICARE, SELFPAY ==
[2025-08-05 11:33] LABS: Hematocrit 38.3 % (37.0-47.0); Hemoglobin 11.9 g/dL (12.0-15.0); Immature Granulocyte Percent A 0.3 % (0-0.5); Lymphocytes Absolute Auto 1.70 K/mm3 (0.9-3.2); Mean Corpuscular HGB Conc 31.1 g/dl (32-36); Mean Corpuscular Hemoglobin 24.1 pg (26-34); Mean Corpuscular Volume 77.7 fl (80-100); Nucleated Red Blood Cells Absolute Auto 0.000 K/mm3 (0.0-0.012); Nucleated Red Blood Cells Perc 0.0 % (0.0-0.2); Platelet Count Result 467 k/mm3 (150-375); Red Blood Count 4.93 M/mm3 (4.2-5.4); White Blood Count 6.6 K/mm3 (4.5-10.0)
[2025-08-05 14:19] LABS: Iron 41 ug/dL (37-170)
[2025-08-05 14:30] LABS: Percent Iron Saturation 10 % (20-50)
[2025-08-05 15:01] LABS: Ferritin 12.70 ng/mL (6.24-137)
[2025-08-05 16:05] LABS: Vitamin B12 428.0 pg/mL (239-931)
== END 2025-08-05 11:18 | disposition home or self-care (01) ==
LOC: ANHLAB 11:18
PROVIDERS: Visit Provider Internal Medicine Hematology & Oncology
DX: D50.9 Iron deficiency anemia, unspecified (principal)
CPT/HCPCS: 36415; 82607; 82728; 82746; 83540; 83550; 85025

== ENCOUNTER 2025-09-14 11:05 | Outpatient (CLI) | payer MEDICARE, SELFPAY ==
--- NOTE | ~2025-09-14 | US_ITS ---
EXAMINATION: US pelvic complete w TV, 09/14/2025 12:05 [employer] HISTORY: Abn uterine bleeding Comparison: None Technique: Zamarripa-scale and color Doppler images were obtained. Findings: Uterus: Uterus anteverted, 0.7 x 7.2 x 7.9 cm. Posterior uterine body fibroid 1.5 x 1.3 cm with a second posterior uterine body fibroid 2.3 x 2.5 cm. . Endometrium 1.4 cm. Right Ovary:The right ovary was not identified. Left Ovary: Within the left ovary there is a cystic lesion measuring 4.9 x 3.8 cm, the left ovary measures 6.4 x 4.8 x 5.5 cm, no adnexal mass, normal flow. Free Fluid: None Impression: 1. Probable functional left ovarian cyst. Follow-up recommended in 6 weeks to assess resolution. Right ovary not identified. 2. Uterine fibroids detailed above Reviewed, dictated and finalized at location P. [employer] Impression: 1. Probable functional left ovarian cyst. Follow-up recommended in 6 weeks to a ssess resolution. Right ovary not identified. 2. Uterine fibroids detailed above
== END 2025-09-14 11:06 | disposition home or self-care (01) ==
LOC: MICIMG 11:06
PROVIDERS: PCP Emergency Medicine; Visit Provider Emergency Medicine
DX: N93.9 Abnormal uterine and vaginal bleeding, unspecified (principal); D25.9 Leiomyoma of uterus, unspecified
CPT/HCPCS: 76830; 76856

== ENCOUNTER 2025-09-14 12:56 | Emergency (ER) | payer MEDICARE, SELFPAY ==
[2025-09-14 13:07] VITALS: BP 145/102; PULSE 76; RESP 16; TEMP 36.3; O2SAT 100
--- NOTE | 2025-09-14 13:42 | ED.URI ---
HPI - URI/Sore Throat General Chief Complaint: Upper Respiratory Infection Stated Complaint: SINUS CONGESTION Time Seen by Provider: 09/14/25 13:20 Source: patient and RN notes reviewed Mode of arrival: ambulatory Limitations: no limitations History of Present Illness HPI Narrative: 50-year-old female presents Express Care complaining of upper respiratory symptoms for 2 weeks. Patient reports cough, congestion, mucopurulent nasal drainage, sinus pressure, headaches. Patient has any fevers, body aches, chills, nausea, vomiting, diarrhea, chest pain, difficulty breathing, or any other symptoms. Patient says symptoms are not improving. Patient tried [id number] cold and flu medication relief. Patient reports history of hypertension. Related Data Home Medications ?Medication ?Instructions ?Recorded ?Confirmed ?Last Taken ?Type bupropion HCl 300 mg 24 hr tablet, 300 mg PO DAILY 06/28/21 09/14/25 Unknown History extended release diltiazem HCl 180 mg 180 mg PO DAILY 06/28/21 09/14/25 Unknown History capsule,extended release 24 hr pantoprazole 20 mg tablet,delayed 20 mg PO DAILY 06/28/21 09/14/25 Unknown History release (Protonix) quetiapine 150 mg tablet,extended 150 mg PO DAILY 06/28/21 09/14/25 Unknown History release 24 hr sertraline 100 mg tablet 100 mg PO DAILY 06/28/21 09/14/25 Unknown History Allergies Allergy/AdvReac Type Severity Reaction Status Date / Time lisinopril Allergy Severe Swelling Verified 09/14/25 13:07 of Lip/Tongue/Throat Penicillins Allergy Severe Rash Verified 09/14/25 13:07 Review of Systems Review of Systems: CONSTITUTIONAL: Denies fever, chills, body aches, or sweats. EYES: Denies visual changes, redness, or discharge. ENT: Positive for sinus pressure and congestion. Negative for rhinorrhea, sore throat, or otalgia. CARDIOVASCULAR: Denies chest pain, palpitations, or edema. RESPIRATORY: Positive for cough. Negative for dyspnea or wheezing. GASTROINTESTINAL: Denies abdominal pain, nausea, vomiting, or diarrhea. GENITOURINARY: Denies dysuria or hematuria. SKIN: Denies rash or itching. MUSCULOSKELETAL: Denies back pain, joint pain, or myalgia. NEUROLOGIC: Denies headache, numbness, or weakness. PSYCHIATRIC: Denies anxiety or depression. All other systems reviewed are negative, except as documented in HPI. [facility] Past Medical History Medical History Uterine fibroid Hypertension Surgical History Surgical History History of delivery x3 Family History Family History Mother Diabetes mellitus Hypothyroid Hypertension Father Hypertension Sibling Lupus Social History Social History Smoking packs per day: 0.25 Smoking cigarettes per day: 5.0 Years smoked: 26 Smoking pack-years: 6.50 Smoking status: Current every day smoker Alcohol intake: current Drinks per week: 1 Substance use: current Substance use type: marijuana Last use: 05/27/2021 Spiritual care concerns: No Comments At the time of my signature, I reviewed and agree with the nursing past medical, surgical, social, and family history. There is no relevant family history pertinent to the patient complaint. Exam Narrative: GENERAL: This is a well-nourished, well-developed adult, in no apparent distress. They are non ill-appearing, nontoxic appearing. HEAD: normocephalic, atraumatic. EYES: Sclera clear/white. Vision is grossly intact. Conjunctiva normal bilaterally. Extraocular movements intact. EARS: External ears normal, auditory canals clear and without drainage, TMs without erythema or perforation. Hearing grossly intact. NOSE: External nose normal with no obvious nasal discharge, nasal turbinates erythematous with exudate, no rhinorrhea. Maxillary and frontal sinus tenderness to palpation. THROAT: Mucous membranes moist, posterior pharynx erythematous without exudate. Uvula is midline. Postnasal drip present. NECK: Neck supple, non-tender without lymphadenopathy, masses or thyromegaly. CARDIOVASCULAR: Regular rate and rhythm without murmurs, gallops, or rubs. RESPIRATORY: Clear to auscultation. Breath sounds equal bilaterally. No wheezes, rales, or rhonchi. SKIN: warm, Dry, intact with no suspicious lesions or rash, good texture and turgor. NEURO: awake, alert, and oriented to person, place and time. There were no obvious focal neurologic abnormalities. EXTREMITIES: No joint tenderness, effusion, or edema noted. BACK: Nontender without deformity. Course Course Emergency Course: Portions of this record may have been created with voice recognition software Level of Care: Express Care Visit Vital Signs Vital signs: Vital Signs Temperature 97.4 F L 09/14/25 13:07 Pulse Rate 76 09/14/25 13:07 Respiratory Rate 16 09/14/25 13:07 Blood Pressure 145/102 H 09/14/25 13:07 Pulse Oximetry 100 09/14/25 13:07 Temperature 97.4 F L 09/14/25 13:07 Pulse Rate 76 09/14/25 13:07 Respiratory Rate 16 09/14/25 13:07 Blood Pressure 145/102 H 09/14/25 13:07 Pulse Oximetry 100 09/14/25 13:07 MDM - URI/Sore Throat MDM Narrative Medical decision making narrative: Patient likely has bacterial sinusitis. Will treat with doxycycline. Will also send benzonatate tablets as needed for cough. Discussed physical exam findings. Advised supportive measures and signs/symptoms to go to the ER. Pt is appropriate for outpt treatment and f/u. Differential Diagnosis Differential diagnosis: Likely upper respiratory infection, otitis media, sinusitis, viral infection, bronchitis and pharyngitis Discharge Plan Discharge Clinical Impression: Sinusitis Qualifiers: Sinusitis location: unspecified location Chronicity: acute Recurrence: non-recurrent Qualified Code(s): J01.90 - Acute sinusitis, unspecified Patient Disposition: Home Condition: Stable Instructions: Antibiotic Form, Sinusitis (ED) Additional Instructions: Take the antibiotics as directed and complete the course even if you start to feel better. Take benzonatate tablets as needed for cough. You may use a Neti pot saline rinse 3 times a day with lukewarm distilled water Continue to take Tylenol or Motrin for pain or fevers. Follow instructions on the bottle. Use a humidifier or vaporizer at night. Drink plenty of water. 8-10 glasses per day. Use flonase 2 times per day for 5 days then as needed Take mucinex 2 times per day and be sure to take with 8oz of water. Follow up with Primary provider in 3-5 days Please go to the ER if he develops any difficulty breathing, chest pains, vomiting, worsening symptoms, or any other concerns Patient Language: [place]an Prescriptions: New benzonatate 200 mg capsule 200 mg PO BID PRN (Reason: cough) Qty: 20 0RF doxycycline monohydrate 100 mg capsule 100 mg PO BID 7 Days Qty: 14 0RF No Action hydrochlorothiazide 12.5 mg tablet 12.5 mg PO DAILY Qty: 60 0RF famotidine 40 mg tablet 40 mg PO BID 5 Days Qty: 10 0RF diltiazem HCl 180 mg capsule,extended release 24hr 180 mg PO DAILY Rx Instructions: Pt has not started taking this medication yet sertraline 100 mg tablet 100 mg PO DAILY pantoprazole [Protonix] 20 mg tablet,delayed release (DR/EC) 20 mg PO DAILY bupropion HCl 300 mg tablet extended release 24 hr 300 mg PO DAILY quetiapine 150 mg tablet extended release 24 hr 150 mg PO DAILY lidocaine 5 % adhesive patch,medicated 1 patch topical DAILY Qty: 6 0RF Rx Instructions: leave on most painful area for up to 12 hrs Follow-up/Referrals: Jatin,Ciara Celestin MD [Primary Care Provider, Unknown] Time of Disposition: 13:41
== END 2025-09-14 13:46 | disposition home or self-care (01) ==
PROVIDERS: PCP Emergency Medicine
DX: J01.90 Acute sinusitis, unspecified (principal); F17.210 Nicotine dependence, cigarettes, uncomplicated; I10 Essential (primary) hypertension
CPT/HCPCS: 99213; G0463